=== PATIENT | female | born 1985 | race Asian ===

== ENCOUNTER 2018-10-10 21:35 | Outpatient (CLI) | payer OTHER | END 2018-10-10 21:36 | disposition critical access hospital (66) | LOC: EMS 21:35 | PROVIDERS: ATTEND Surgery | DX: R09.89 Other specified symptoms and signs involving the circulatory and respiratory systems (principal); R21 Rash and other nonspecific skin eruption | CPT/HCPCS: A0425; A0427 ==

== ENCOUNTER 2018-10-10 21:49 | Emergency (ER) | payer OTHER ==
[2018-10-10] MEDS ORDERED: DEXAMETHASONE 10 MG/ML VIAL IVP STA (21:59)
[2018-10-11 00:35] VITALS: BP 102/79
--- NOTE | 2018-10-11 01:35 | ED Physician Documentation ---
History of Present Illness - Stated complaint Stated Complaint: ALLERGIC REACTION - Chief complaint Chief Complaint: Allergic Rx - History obtained from History obtained from: Patient, EMS - History of Present Illness Timing: Today - Additonal information Additional information: 32-year-old female took some edibles and then began to feel some swelling in her throat and redness to her arm and she has become concerned and is come to the emergency department for treatment. 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 - Allergies Allergies/Adverse Reactions: Allergies Allergy/AdvReac Type Severity Reaction Status Date / Time ketorolac [From Toradol] AdvReac Emesis Verified 10/10/18 21:58 - Social History Does the pt smoke?: No Smoking Status: Never smoker Does the pt drink ETOH?: Yes Does the pt have substance abuse?: Yes Substance Use and Type: Marijuana - Immunizations Immunizations are current?: Yes - POLST Patient has POLST: No PD ED PE NORMAL - Vitals Vital signs reviewed: Yes (hypertension ) - General General: Alert and oriented X 3, No acute distress, Well developed/nourished - HEENT HEENT: Atraumatic, PERRL, EOMI, Ears normal, Moist mucous membranes, Pharynx benign, Dentition benign - Neck Neck: Supple, no meningeal sign, No bony TTP - Cardiac Cardiac: RRR, No murmur - Respiratory Respiratory: No respiratory distress, Clear bilaterally - Abdomen Abdomen: Soft, Non tender - Back Back: No CVA TTP, No spinal TTP - Derm Derm: Normal color, Warm and dry, No rash - Extremities Extremities: No deformity, No edema - Neuro Neuro: Alert and oriented X 3, 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 Departure - Departure Disposition: 01 Home, Self Care Clinical Impression: Allergic reaction Qualifiers: Encounter type: initial encounter Qualified Code(s): T78.40XA - Allergy, unspecified, initial encounter Instructions: ED Allergic Reaction General Other Follow-Up: ALESSANDRO Elias [Provider Group] Discharge Date/Time: 10/11/18 01:39
== END 2018-10-11 01:39 | disposition home or self-care (01) ==
LOC: EDSEX → ED 21:49
DX: T40.7X1A Poisoning by cannabis (derivatives), accidental (unintentional), initial encounter (principal); R22.1 Localized swelling, mass and lump, neck
CPT/HCPCS: 96374; 99282; 99283

== ENCOUNTER 2019-03-17 01:27 | Emergency (ER) | payer OTHER ==
[2019-03-17 01:43] VITALS: BP 113/83
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
== END 2019-03-17 02:40 | disposition home or self-care (01) ==
LOC: ED 01:27
DX: T23.132A Burn of first degree of multiple left fingers (nail), not including thumb, initial encounter (principal); X14.1XXA Other contact with hot air and other hot gases, initial encounter; Y93.G3 Activity, cooking and baking; Y92.009 Unspecified place in unspecified non-institutional (private) residence as the place of occurrence of the external cause
CPT/HCPCS: 99281; 99282

== ENCOUNTER 2019-03-29 19:27 | Outpatient (CLI) | payer OTHER | END 2019-03-29 19:28 | disposition critical access hospital (66) | LOC: EMS 19:27 | PROVIDERS: ATTEND Surgery | DX: R51 Headache (principal) | CPT/HCPCS: A0425; A0429 ==

== ENCOUNTER 2019-03-29 19:46 | Emergency (ER) | payer OTHER ==
[2019-03-29] MEDS ORDERED: SODIUM CHLORIDE 0.9% 1,000 ML IV ONE (20:41)
[2019-03-29] MEDS ORDERED: diphenhydrAMINE INJ 50 MG/ML VIAL IVP STA (20:41)
[2019-03-29] MEDS ORDERED: MAGNESIUM SULFATE 2 GRAM 2 GM/50 ML BAG IV ONE (20:41)
[2019-03-29] MEDS ORDERED: METOCLOPRAMIDE 10 MG/2 ML VIAL IVP STA (20:41)
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
[2019-03-29 20:55] LABS: BASOPHILS # (AUTO) 0.1 10^3/uL (0.0-0.1); BASOPHILS % (AUTO) 0.5 %; EOSINOPHILS # (AUTO) 0.3 10^3/uL (0.0-0.7); EOSINOPHILS % (AUTO) 2.5 %; HGB - HEMOGLOBIN 14.2 g/dL (12.0-16.0); LYMPHOCYTES # (AUTO) 2.5 10^3/uL (1.5-3.5); LYMPHOCYTES % (AUTO) 21.7 %; MEAN CORPUSCULAR HEMOGLOBIN 31.4 pg (27.0-31.0); MEAN CORPUSCULAR HGB CONC 32.8 g/dL (32.0-36.0); MEAN CORPUSCULAR VOLUME 95.8 fL (81.0-99.0); MEAN PLATELET VOLUME 10.2 fL (7.9-10.8); MONOCYTES # (AUTO) 0.7 10^3/uL (0.0-1.0); MONOCYTES % (AUTO) 6.1 %; NEUTROPHILS # (AUTO) 7.8 10^3/uL (1.5-6.6); NEUTROPHILS % (AUTO) 68.8 %; PLT - PLATELET COUNT 268 10^3/uL (130-450); RED BLOOD COUNT 4.52 10^6/uL (4.20-5.40); RED CELL DISTRIBUTION WIDTH 14.1 % (12.0-15.0); WHITE BLOOD COUNT 11.4 x10^3/uL (4.8-10.8)
[2019-03-29 21:28] LABS: CALCIUM 8.7 mg/dL (8.5-10.3); CREATININE 0.7 mg/dL (0.4-1.0)
[2019-03-29 21:46] LABS: HCG,QUALITATIVE BLOOD NEGATIVE
--- NOTE | 2019-03-29 22:25 | CT Report ---
Reason: headache, fall 4 days ago Procedure Date: 03/29/2019 Accession Number: [id number] / [id number] Procedure: CT - HEAD WO CPT Code: Final Report FULL RESULT: EXAM: CT HEAD EXAM DATE: 03/29/2019 10:02 PM. CLINICAL HISTORY: Headache, fall 4 days ago. COMPARISON: None. TECHNIQUE: Multiaxial CT images were obtained from the foramen magnum to the vertex. Reformats: Sagittal and coronal. IV contrast: None. In accordance with CT protocol optimization, one or more of the following dose reduction techniques were utilized for this exam: automated exposure control, adjustment of mA and/or KV based on patient size, or use of iterative reconstructive technique. FINDINGS: Parenchyma: No intraparenchymal hemorrhage. No evidence of mass, midline shift, or CT findings of infarction. Castillo-white differentiation is distinct. Extraaxial Spaces: Normal for age. No subdural or epidural collections identified. Ventricles: Normal in size and position. Sinuses and Orbits: Imaged paranasal sinuses, orbits, and mastoids show no significant abnormality. Bones: No evidence of fracture or calvarial defect. Other: None. IMPRESSION: Normal head CT. RAD[facility]
[2019-03-29 22:53] VITALS: BP 110/84
== END 2019-03-29 22:53 | disposition home or self-care (01) ==
LOC: EDUNIT# → ED 19:46
DX: R51 Headache (principal)
CPT/HCPCS: 36415; 70450; 80048; 84703; 85025; 96365; 96375; 99284; J1200; J2765

== ENCOUNTER 2019-04-19 01:23 | Emergency (ER) | payer OTHER ==
[2019-04-19] MEDS ORDERED: CHERRY SYRUP 10 ML UDC PO ONE (02:48)
[2019-04-19] MEDS ORDERED: DEXAMETHASONE 10 MG/ML VIAL PO STA (02:48)
--- NOTE | 2019-04-19 02:50 | ED Physician Documentation ---
PD HPI DYSPNEA - Stated complaint Stated Complaint: SOA,CHEST PX - Chief complaint Chief Complaint: Resp - History obtained from History obtained from: Patient, Family - History of Present Illness Timing - onset: How many days ago (3) Timing - onset during: Rest Timing - duration: Days (3) Timing - details: Gradual onset, Still present Inciting event(s): Other (exposure to vaping) Worsened by: Coughing, Smoke Associated symptoms: Cough, Chest pain / discomfort. No: Fever Similar symptoms before: Has not had sx before Recently seen: Not recently seen - Additional information Additional information: Previously well 33-year-old female has been vaping THC obtained from a dispensary and not containing vitamin E oils. She has developed a cough associated with the vaping and some pain in her central chest. She has been having an issue with the cough for about 2 weeks and for the past 3 days she has had significant chest pain and shortness of breath. Review of Systems Constitutional: denies: Fever Eyes: denies: Decreased vision Ears: denies: Ear pain Nose: denies: Rhinorrhea / runny nose, Congestion Throat: denies: Sore throat Cardiac: reports: Chest pain / pressure. 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 - Present Medications Home Medications: Ambulatory Orders Medication Instructions Recorded Confirmed Metoclopramide [Reglan] 10 mg PO Q6H PRN #10 tablet 03/29/19 - Allergies Allergies/Adverse Reactions: Allergies Allergy/AdvReac Type Severity Reaction Status Date / Time ketorolac [From Toradol] AdvReac Emesis Verified 03/29/19 19:52 - Social History Does the pt smoke?: Yes Smoking Status: Current every day smoker Does the pt drink ETOH?: Yes Does the pt have substance abuse?: Yes - Immunizations Immunizations are current?: Yes - POLST Patient has POLST: No PD ED PE NORMAL - Vitals Vital signs reviewed: Yes (hpyertensive mild ) - General General: Alert and oriented X 3, No acute distress, Well developed/nourished - HEENT HEENT: Atraumatic, PERRL, EOMI, Ears normal, Moist mucous membranes - Neck Neck: Supple, no meningeal sign, No bony TTP - Cardiac Cardiac: RRR, No murmur - Respiratory Respiratory: No respiratory distress, Clear bilaterally - Abdomen Abdomen: Soft, Non tender, Non distended, No organomegaly - Back Back: No CVA TTP, No spinal TTP - Derm Derm: Normal color, Warm and dry, No rash - Extremities Extremities: No deformity, No edema - Neuro Neuro: Alert and oriented X 3, 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 No acute abnormality seen in the chest), EMP read indepedently, See rad report PD MEDICAL DECISION MAKING - ED course Complexity details: reviewed results, re-evaluated patient, considered differential, d/w patient, d/w family ED course: 33-year-old female with cough and chest pain related to vaping has no wheezing on initial evaluation. She is administered dexamethasone 10 mg orally and she is encouraged to discontinue the use of the vape pen. Her chest x-ray is otherwise unremarkable. There is no evidence of infection. Departure - Departure Disposition: Home, Self Care Clinical Impression: Bronchitis due to fumes or vapors, acute Condition: Stable Instructions: ED Bronchitis Asthmatic Follow-Up: ALESSANDRO Elias [Provider Group] Comments: Today it appears you have pain in your chest related to vaping. You have been given a dose of dexamethasone which should help with the acute inflammation associated with this. The recommendation is to discontinue vaping entirely. Today on chest x-ray there is no evidence of obvious lung abnormality.
--- NOTE | 2019-04-19 03:58 | XRAY Report ---
Reason: cough pain soa Procedure Date: 04/19/2019 Accession Number: [id number] / [id number] Procedure: XR - Chest 2 View X-Ray CPT Code: 32317 Final Report FULL RESULT: EXAM: CHEST RADIOGRAPHY EXAM DATE: 04/19/2019 03:18 AM. CLINICAL HISTORY: Cough pain shortness of breath. COMPARISON: None. TECHNIQUE: 2 views. FINDINGS: Lungs/Pleura: No alveolar consolidation or pleural effusion seen. No pneumothorax. Mediastinum: Heart and mediastinal contours are unremarkable. Other: None. IMPRESSION: 1. No acute abnormality seen in the chest. [facility]
[2019-04-19 04:15] VITALS: BP 117/83
== END 2019-04-19 04:19 | disposition home or self-care (01) ==
LOC: ED 01:23
DX: T65.891A Toxic effect of other specified substances, accidental (unintentional), initial encounter (principal); J68.0 Bronchitis and pneumonitis due to chemicals, gases, fumes and vapors; F12.188 Cannabis abuse with other cannabis-induced disorder; F17.200 Nicotine dependence, unspecified, uncomplicated
CPT/HCPCS: 71046; 99283; 99284; A9270

== ENCOUNTER 2019-04-20 00:43 | Outpatient (CLI) | payer OTHER | END 2019-04-20 00:44 | disposition critical access hospital (66) | LOC: EMS 00:43 | PROVIDERS: ATTEND Surgery | DX: R07.81 Pleurodynia (principal) | CPT/HCPCS: A0425; A0429 ==

== ENCOUNTER 2019-04-20 01:00 | Emergency (ER) | payer OTHER ==
[2019-04-20] MEDS ORDERED: ONDANSETRON 4 MG/2 ML VIAL IVP STA (01:27)
[2019-04-20] MEDS ORDERED: IBUPROFEN 600 MG TABLET PO STA (01:27)
--- NOTE | 2019-04-20 01:28 | ED Physician Documentation ---
PD HPI CHEST PAIN - Stated complaint Stated Complaint: RIB PAIN - Chief complaint Chief Complaint: General - History obtained from History obtained from: Patient, Family - History of Present Illness Timing - onset: Today Timing - details: Gradual onset Pain level max: 7 Pain level now: 4 Quality: Pain Location: Left chest Worsened by: Movement, Other (Breathing) Associated symptoms: Shortness of air. No: Nausea, Vomiting Recently seen: Emergency Dept - Additional information Additional information: There is a 33-year-old woman who presents with her by ambulance with complaints that she is been having left-sided chest pain for the past 3 days. She was seen here in the emergency department for it yesterday a chest x-ray was done and they felt the pain was due to vaping so she was given a dexamethasone injection and instructed not to be vaping anymore. She says she did not smoke or vape today but the pain started to come back again tonight is a 4 out of 10 now but if she takes a deep breath or moves it is a 7 out of 10. She has not taken any medications for it at home. She was coughing bringing up a little bit a yellow phlegm prior to the onset of this pain but has not had a sore throat or stuffy nose. She denies any palpitations. She is felt a little fatigued and gets short of breath if she gets up and moves around. Her last menstrual period was at the end of March but she does not think that she is . She is not using any hormonal control. Denies fever. No edema and denies history of DVT. She is and denies any trauma other than the fact that her 80 pound malamute jumped up on her while she was sitting today. She did take a 5 mg cannabis tincture tonight trying to help alleviate the pain. Review of Systems Constitutional: reports: Fatigue. denies: Fever Nose: denies: Rhinorrhea / runny nose Throat: denies: Sore throat Cardiac: reports: Chest pain / pressure. denies: Palpitations, Pedal edema Respiratory: reports: Dyspnea. denies: Cough GI: denies: Nausea, Vomiting : denies: Dysuria, Now EGA Skin: denies: Rash Musculoskeletal: denies: Back pain, Extremity pain Neurologic: reports: Generalized weakness. 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 - Present Medications Home Medications: Ambulatory Orders Medication Instructions Recorded Confirmed Metoclopramide [Reglan] 10 mg PO Q6H PRN #10 tablet 03/29/19 Polyethylene Glycol 3350 [Miralax] 17 gm PO DAILY #10 packet 04/20/19 - Allergies Allergies/Adverse Reactions: Allergies Allergy/AdvReac Type Severity Reaction Status Date / Time ketorolac [From Toradol] AdvReac Emesis Verified 03/29/19 19:52 - Social History Does the pt smoke?: Yes Smoking Status: Current every day smoker Does the pt drink ETOH?: Yes Does the pt have substance abuse?: Yes - Immunizations Immunizations are current?: Yes - POLST Patient has POLST: No PD ED PE NORMAL - Vitals Vital signs reviewed: Yes - General General: Alert and oriented X 3, Well developed/nourished, Other (Thin 33-year-old woman who sitting rubbing moves very slowly when she goes to sit up and grimacing.) - HEENT HEENT: Atraumatic, PERRL, Moist mucous membranes - Neck Neck: Other (Patient does have anterior and posterior cervical adenopathy) - Cardiac Cardiac: RRR, No murmur, Strong equal pulses - Respiratory Respiratory: No respiratory distress, Clear bilaterally, Other (Splinting with respirations. She complains of pain with palpation along the left lateral chest wall. No subcu emphysema, crepitus or crepitance. 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 No: Wide QRS Ischemia: Normal ST segments Compare to prior EKG: Old EKG unavailable - Labs Labs: Laboratory Tests 04/20/19 04/20/19 04/20/19 01:35 01:35 01:35 WBC 10.8 RBC 3.99 L Hgb 12.7 Hct 37.9 MCV 95.0 MCH 31.8 H MCHC 33.5 RDW 13.2 Plt Count 237 MPV 10.6 Neut # (Auto) 6.8 H Lymph # (Auto) 3.0 [place] # (Auto) 0.8 Eos # (Auto) 0.0 Baso # (Auto) 0.1 Absolute Nucleated RBC 0.00 Nucleated RBC % 0.0 D-Dimer 762.5 H Sodium 135 Potassium 3.2 L Chloride 102 Carbon Dioxide 25 Anion Gap 8.0 BUN 12 Creatinine 1.0 Estimated GFR (MDRD) 65 L Glucose 109 H Calcium 9.3 Total Bilirubin 0.7 AST 17 ALT 13 Alkaline Phosphatase 43 Total Protein 7.5 Albumin 4.6 Globulin 2.9 Albumin/Globulin Ratio 1.6 Lipase 58 H Urine Color Urine Clarity Urine pH Ur Specific Round O Urine Protein Urine Glucose (UA) Urine Ketones Urine Occult Blood Urine Nitrite Urine Bilirubin Urine Urobilinogen Ur Leukocyte Esterase Ur Microscopic Review Urine Culture Comments Urine HCG, Qual 04/20/19 02:30 WBC RBC Hgb Hct MCV MCH MCHC RDW Plt Count MPV Neut # (Auto) Lymph # (Auto) [place] # (Auto) Eos # (Auto) Baso # (Auto) Absolute Nucleated RBC Nucleated RBC % D-Dimer Sodium Potassium Chloride Carbon Dioxide Anion Gap BUN Creatinine Estimated GFR (MDRD) Glucose Calcium Total Bilirubin AST ALT Alkaline Phosphatase Total Protein Albumin Globulin Albumin/Globulin Ratio Lipase Urine Color YELLOW Urine Clarity CLEAR Urine pH 6.0 Ur Specific Round O 1.020 Urine Protein NEGATIVE Urine Glucose (UA) NEGATIVE Urine Ketones TRACE Urine Occult Blood NEGATIVE Urine Nitrite NEGATIVE Urine Bilirubin NEGATIVE Urine Urobilinogen 0.2 (NORMAL) Ur Leukocyte Esterase NEGATIVE Ur Microscopic Review NOT INDICATED Urine Culture Comments NOT INDICATED Urine HCG, Qual NEGATIVE - Rads (name of study) ct angio chest Radiology: See rad report (Neg PE) PD MEDICAL DECISION MAKING - ED course Complexity details: reviewed old records, re-evaluated patient, d/w patient, d/w family ED course: I did review the chest x-ray done last night. No infiltrate no pneumothorax. No obvious rib fractures. She is noted to have a lot of bowel gas. She was ordered for IV Zofran but before that could be given she was demanding that the IV be taken out that the EMS had established because it was hurting. It was removed and she was administered oral Zofran and ibuprofen. CBC is normal. Her d-dimer dimer came back over 700. I discussed with her we needed to do a CT angio of her chest and an IV was reestablished. She is not and her urinalysis was negative. She was complaining of more nausea and I ordered Compazine 10 mg IV. She said the ibuprofen and Zofran had helped the pain somewhat it was down to about a 2 out of 10. 0347: Patient returned from CT and received the Compazine. On reevaluation she is sleeping. The CT was negative for PE but on the gate shear operator imaging I noticed that she has a lot of gaseous distention of her colon and the gastric air bubble sitting right underneath the left diaphragm. Results were discussed with her and her . I recommended MiraLAX to try and clear out her gut and see if that help alleviate the discomfort. Ibuprofen for pain. I would avoid narcotic s at this point especially with what I am seeing on her imaging with the gut distension. Departure - Departure Disposition: 01 Home, Self Care Clinical Impression: Pleuritic chest pain, Constipation Condition: Good Instructions: ED Chest Pain Pleurisy Follow-Up: [facility] [Provider Group] Prescriptions: Polyethylene Glycol 3350 [Miralax] 17 gm PO DAILY #10 packet Comments: May take ibuprofen or Aleve for the pain. I would avoid any narcotics as this could create worsening gas retention in the gut. Take 1-3 doses of MiraLAX over the next 3 days to help clear your gut. [facility].
[2019-04-20 01:41] LABS: BASOPHILS # (AUTO) 0.1 10^3/uL (0.0-0.1); BASOPHILS % (AUTO) 0.5 %; EOSINOPHILS % (AUTO) 0.3 %; HGB - HEMOGLOBIN 12.7 g/dL (12.0-16.0); LYMPHOCYTES % (AUTO) 28.2 %; MEAN CORPUSCULAR HEMOGLOBIN 31.8 pg (27.0-31.0); MEAN CORPUSCULAR HGB CONC 33.5 g/dL (32.0-36.0); MEAN PLATELET VOLUME 10.6 fL (7.9-10.8); MONOCYTES # (AUTO) 0.8 10^3/uL (0.0-1.0); MONOCYTES % (AUTO) 7.2 %; NEUTROPHILS # (AUTO) 6.8 10^3/uL (1.5-6.6); NEUTROPHILS % (AUTO) 63.4 %; PLT - PLATELET COUNT 237 10^3/uL (130-450); RED BLOOD COUNT 3.99 10^6/uL (4.20-5.40); RED CELL DISTRIBUTION WIDTH 13.2 % (12.0-15.0); WHITE BLOOD COUNT 10.8 x10^3/uL (4.8-10.8)
[2019-04-20] MEDS ORDERED: ONDANSETRON ODT 4 MG TABLET TL STA (01:46)
[2019-04-20 01:54] LABS: ALBUMIN 4.6 g/dL (3.2-5.5); ALBUMIN/GLOBULIN RATIO 1.6 (1.0-2.2); BILIRUBIN,TOTAL 0.7 mg/dL (0.2-1.0); CALCIUM 9.3 mg/dL (8.5-10.3); TOTAL PROTEIN 7.5 g/dL (6.7-8.2)
[2019-04-20 02:35] LABS: BILIRUBIN,URINE NEGATIVE (NEGATIVE); GLUCOSE, URINE (UA) NEGATIVE (NEGATIVE); KETONES,URINE (UA) TRACE mg/dL (NEGATIVE); LEUKOCYTE ESTERASE, URINE NEGATIVE (NEGATIVE); NITRITE,URINE NEGATIVE (NEGATIVE); OCCULT BLOOD,URINE NEGATIVE (NEGATIVE); PROTEIN,URINE NEGATIVE (NEGATIVE); UROBILINOGEN,URINE 0.2 (NORMAL) E.U./dL (NORMAL)
[2019-04-20 02:37] LABS: CLARITY,URINE CLEAR (CLEAR); HCG UR QUAL NEGATIVE
[2019-04-20] MEDS ORDERED: IOVERSOL 320 100 ML VIAL IVP ONE ×2 (02:49→03:09)
[2019-04-20] MEDS ORDERED: PROCHLORPERAZINE 10 MG/2 ML VIAL IVP STA (02:57)
--- NOTE | 2019-04-20 03:37 | CT Report ---
Reason: pleuritic chest pain Procedure Date: 04/20/2019 Accession Number: [id number] / [id number] Procedure: CT - ANGIO CHEST W/WO CPT Code: Final Report FULL RESULT: EXAM: CT ANGIOGRAM CHEST EXAM DATE: 04/20/2019 03:11 AM. CLINICAL HISTORY: Pleuritic chest pain. COMPARISON: None. TECHNIQUE: Routine helical imaging was performed through the chest in the pulmonary arterial phase. IV Contrast: OPTI 320 80ML. Reconstructions: Coronal 3-D MIP reconstructions.Sagittal and coronal. In accordance with CT protocol optimization, one or more of the following dose reduction techniques were utilized for this exam: automated exposure control, adjustment of mA and/or KV based on patient size, or use of iterative reconstructive technique. FINDINGS: Pulmonary Arteries: Diagnostic quality: Adequate through the segmental arteries. No evidence for acute or chronic pulmonary emboli. No evidence of right heart strain. Lungs/Pleura: No alveolar consolidation or pleural effusion seen. No pneumothorax. Mediastinum: Normal. No cardiac enlargement or adenopathy. Thoracic Aorta: Unremarkable. Upper Abdomen: Unremarkable. Other: None. IMPRESSION: 1. No pulmonary emboli seen. No acute abnormality seen in the chest. RADIA
[2019-04-20 03:40] VITALS: BP 116/75
== END 2019-04-20 03:57 | disposition home or self-care (01) ==
LOC: EDUNIT# → ED 01:00
DX: R07.81 Pleurodynia (principal); K59.00 Constipation, unspecified; F17.200 Nicotine dependence, unspecified, uncomplicated
CPT/HCPCS: 36415; 71275; 80053; 81003; 81025; 83690; 85025; 85379; 93005; 96374; 99284; A9270; Q0162; Q9967; 81001; 87086

== ENCOUNTER 2019-04-23 08:31 | Emergency (ER) | payer OTHER ==
--- NOTE | 2019-04-23 08:59 | ED Physician Documentation ---
History of Present Illness - Stated complaint Stated Complaint: CP - Additonal information Additional information: This is a 33-year-old female who presents with left-sided chest pain. Patient was initially seen on the first and she had generalized chest discomfort, this was thought to be related to vaping, she was given dexamethasone and stopped vaping But her chest pain persisted And localized to her left lower chest so she presented again On 04/20/2019 and had a work-up including a negative EKG. She did have an elevated d-dimer at that time so a CTA was performed which showed no acute abnormalities with the lungs, no pulmonary embolism, no signs of rib fracture. It is thought that maybe she had a musculoskeletal chest pain since her heavy malamute dog did jump on her chest prior to her pain starting. She states that she has had persistent pain which is not improved with THC/CBD oil, so she presents again today. No hemoptysis, no shortness of breath, the pain is unchanged from several days ago when she had her CT and previous work-up. She denies any history of cardiac problems. 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 - Present Medications Home Medications: Ambulatory Orders Medication Instructions Recorded Confirmed Metoclopramide [Reglan] 10 mg PO Q6H PRN #10 tablet 03/29/19 polyethylene glycoL 3350 [Miralax] 17 gm PO DAILY #10 packet 04/20/19 Ibuprofen [Ibu] 600 mg PO Q6H PRN #30 tablet 04/23/19 methocarbamoL [Methocarbamol] 500 mg PO TID PRN #15 tablet 04/23/19 - Allergies Allergies/Adverse Reactions: Allergies Allergy/AdvReac Type Severity Reaction Status Date / Time ketorolac [From Toradol] AdvReac Emesis Verified 04/23/19 08:42 - Social History Does the pt smoke?: Yes Smoking Status: Current every day smoker Does the pt drink ETOH?: Yes Does the pt have substance abuse?: Yes - Immunizations Immunizations are current?: Yes - POLST Patient has POLST: No PD ED PE NORMAL - Vitals Vital signs reviewed: Yes - General General: Alert and oriented X 3 - HEENT HEENT: Atraumatic - Cardiac Cardiac: RRR - Respiratory Respiratory: No respiratory distress, Clear bilaterally, Other (Patient has focal and reproducible chest wall tenderness over her left lower anterior ribs. There is no overlying rash, no bruising or signs of trauma) Results - Vitals Vitals: Vital Signs - 24 hr 04/23/19 04/23/19 08:38 10:32 Temperature 36.3 C L Heart Rate 87 63 Respiratory 16 16 Rate Blood Pressure 130/81 H 121/95 H O2 Saturation 100 98 Oxygen O2 Source Room air - EKG (time done) 8:35 Other comments: Other comments (Rate 85, rhythm sinus, there is no ST segment elevation or depression, no abnormal T wave inversions. Normal R wave pro gression. Intervals within normal limits. No change from prior.) - Rads (name of study) CXR Radiology: Other (Normal 2 view chest) PD MEDICAL DECISION MAKING - ED course Complexity details: considered differential (PE, rib fracture, pneumothorax, ACS, musculoskeletal pain) ED course: Patient returns with chest discomfort. She was seen and had a extensive work-up several days ago including a CT scan of her chest which showed no fractures, pneumonia, or pulmonary embolism. The pain did start after her dog jumped on her chest. Her work-up was unremarkable and she is low risk for cardiac disease. EKG was repeated today shows normal sinus rhythm without any signs of ischemia or dysrhythmia. I did repeat an x-ray as well today which showed no acute abnormalities. The location of her pain and it's reproducibility and the fact that is worse with movement does suggest chest wall discomfort. She has not been taking anything other than THC/CBD oil for discomfort, I discussed that ibuprofen and Tylenol would likely give her better relief. She asked for a note excusing her from a flight to [employer] and training, I discussed that do not see a medical reason to keep her from flying at this time, but I think is reasonable that she avoid strenous activity until her pain is improving. Patient agrees this plan, return precautions reviewed and she was discharged home in care of her Departure - Departure Disposition: 01 Home, Self Care Clinical Impression: Chest pain Qualifiers: Chest pain type: unspecified Qualified Code(s): R07.9 - Chest pain, unspecified Condition: Good Prescriptions: Ibuprofen [Ibu] 600 mg PO Q6H PRN #30 tablet PRN Reason: Pain methocarbamoL [Methocarbamol] 500 mg PO TID PRN #15 tablet PRN Reason: Pain Comments: You were seen today for chest pain. Your EKG and chest x-ray are reassuring. Your CT scan several days ago did not show any signs of rib fracture or blood clots or pneumonia. I think you likely have some irritation/strain of your chest wall, and I recommend that you take ibuprofen 600 mg every 6 hours, and you may also try the methocarbamol for discomfort. If you are having worsening symptoms such as coughing up blood, shortness of breath, or other concerning symptoms return to the emergency department. Please follow-up with your primary care provider. Forms: Activity restrictions Discharge Date/Time: 04/23/19 10:34
[2019-04-23] MEDS ORDERED: methocarbamoL 500 MG TABLET PO STA (09:00)
[2019-04-23] MEDS ORDERED: IBUPROFEN 600 MG TABLET PO STA (09:00)
[2019-04-23] MEDS ORDERED: ACETAMINOPHEN 325 MG TABLET PO STA (09:00)
--- NOTE | 2019-04-23 10:14 | XRAY Report ---
Reason: Persistent L chest pain Procedure Date: 04/23/2019 Accession Number: [id number] / [id number] Procedure: XR - Chest 2 View X-Ray CPT Code: 31269 Final Report FULL RESULT: EXAM: CHEST RADIOGRAPHY EXAM DATE: 04/23/2019 09:38 AM. CLINICAL HISTORY: Persistent L chest pain. COMPARISON: CHEST 2 VIEW 04/19/2019 3:09 AM. TECHNIQUE: 2 views. FINDINGS: Lungs/Pleura: No focal opacities evident. No pleural effusion. No pneumothorax. Normal volumes. Mediastinum: Heart and mediastinal contours are unremarkable. Other: None. IMPRESSION: Normal 2-view chest radiography. RADIA
[2019-04-23 10:34] VITALS: BP 121/95
== END 2019-04-23 10:34 | disposition home or self-care (01) ==
LOC: ED 08:31
DX: R07.9 Chest pain, unspecified (principal); Z02.9 Encounter for administrative examinations, unspecified; F17.200 Nicotine dependence, unspecified, uncomplicated
CPT/HCPCS: 71046; 93005; 99283; A9270

== ENCOUNTER 2019-04-27 01:51 | Outpatient (CLI) | payer OTHER | END 2019-04-27 01:52 | disposition EMS.NT | LOC: EMS 01:51 | PROVIDERS: ATTEND Surgery | DX: R07.9 Chest pain, unspecified (principal) ==

== ENCOUNTER 2019-05-11 22:17 | Emergency (ER) | payer OTHER ==
[2019-05-11 22:40] VITALS: BP 123/95
== END 2019-05-11 23:58 | disposition left against medical advice (07) ==
LOC: ED 22:17
DX: Z53.21 Procedure and treatment not carried out due to patient leaving prior to being seen by health care provider (principal)

== ENCOUNTER 2019-07-15 09:12 | Outpatient (CLI) | payer OTHER | END 2019-07-15 09:13 | disposition critical access hospital (66) | LOC: EMS 09:12 | PROVIDERS: ATTEND Surgery | DX: R05 Cough (principal); R07.89 Other chest pain | CPT/HCPCS: A0425; A0429 ==

== ENCOUNTER 2019-07-15 09:36 | Emergency (ER) | payer OTHER ==
--- NOTE | 2019-07-15 10:04 | ED Physician Documentation ---
PD HPI URI - Stated complaint Stated Complaint: COUGH/CHEST TIGHT - Chief complaint Chief Complaint: Resp - History obtained from History obtained from: Patient - History of Present Illness Timing - onset: How many days ago (5-6) Timing duration: Days (5-6) Timing details: Gradual onset, Still present Associated symptoms: Chills, Nasal congestion, Dry cough, Dyspnea. No: Fever, NVD Contributing factors: Sick contact (She had a possible Coban exposure 20 days ago and had been self isolating away from people for 2 weeks. She was back out little bit more exposed but noticed onset of a cough some fatigue and shortness of breath developing over the last 5 or 6 days. She was seen at [facility] ER for f eeling of light headedness and nausea and vomiting with some diarrhea. She did not have much of the cough at that time. She was prescribed some Zofran and states her nausea has improved. She is continued with diarrhea and having increased general weakness. She was seen at the [facility] yesterday and had a Coban test with the results pending. Today she was feeling lightheaded and had some coughing when she was in the car and felt that she passed out momentarily. She is here for evaluation.) Worsened by: Activity Similar symptoms before: Has not had sx before Recently seen: Clinic ([facility] yesterday with COVID testing), Emergency Dept (Several days ago for nausea vomiting diarrhea component at that time. Seen in [facility] and prescribed Zofran.) Review of Systems Constitutional: reports: Chills, Myalgias. denies: Fever Nose: reports: Rhinorrhea / runny nose, Congestion Throat: denies: Sore throat Cardiac: denies: Chest pain / pressure, Palpitations, Pedal edema Respiratory: reports: Dyspnea, Cough GI: reports: Nausea, Vomiting, Diarrhea. denies: Abdominal Pain, Hematemesis, Bloody / black stool : reports: LMP (recent). 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 - Present Medications Home Medications: Ambulatory Orders Medication Instructions Recorded Confirmed Benzonatate [Tessalon Perle] 100 mg PO TID PRN #20 capsule 07/15/19 Diphenoxylate/Atropine [Lomotil] 1 each PO QID PRN #16 tablet 07/15/19 - Allergies Allergies/Adverse Reactions: Allergies Allergy/AdvReac Type Severity Reaction Status Date / Time ketorolac [From Toradol] AdvReac Emesis Verified 07/15/19 09:43 - Social History Does the pt smoke?: Yes Smoking Status: Current every day smoker Does the pt drink ETOH?: Yes ETOH Use: Beer Does the pt have substance abuse?: No - Immunizations Immunizations are current?: Yes - POLST Patient has POLST: No PD ED PE NORMAL - Vitals Vital signs reviewed: Yes - General General: Alert and oriented X 3, No acute distress, Well developed/nourished - HEENT HEENT: Ears normal, Pharynx benign. No: Moist mucous membranes - Neck Neck: Supple, no meningeal sign, No adenopathy - Cardiac Cardiac: RRR, No murmur - Respiratory Respiratory: Clear bilaterally - Abdomen Abdomen: Normal bowel sounds, Soft, Non tender, Non distended - Derm Derm: Normal color, Warm and dry - Extremities Extremities: No deformity, No tenderness to palpate, No edema, No calf tenderness / cord - Neuro Neuro: Alert and oriented X 3, No motor deficit, No sensory deficit, Normal speech Results - Vitals Vitals: Oxygen O2 Source Room air - EKG (time done) 10:15 Rate: Rate (enter#) (58) Rhythm: NSR [place]: Normal Intervals: Normal NV. No: Prolonged QT QRS: Normal Ischemia: Normal ST segments. No: ST elevation c/w ischemia, ST depression - Labs Labs: Laboratory Tests 07/15/19 07/15/19 07/15/19 10:30 10:30 10:30 WBC 6.3 RBC 4.05 L Hgb 12.9 Hct 38.6 MCV 95.3 MCH 31.9 H MCHC 33.4 RDW 13.3 Plt Count 214 MPV 10.7 Neut # (Auto) 4.3 Lymph # (Auto) 1.6 Pierce # (Auto) 0.4 Eos # (Auto) 0.0 Baso # (Auto) 0.0 Absolute Nucleated RBC 0.00 Nucleated RBC % 0.0 Sodium 135 Potassium 3.5 Chloride 104 Carbon Dioxide 22 Anion Gap 9.0 BUN 7 Creatinine 0.6 Estimated GFR (MDRD) 117 Glucose 97 Calcium 8.8 Magnesium Total Bilirubin 0.7 AST 15 ALT 11 Alkaline Phosphatase 29 L Troponin I High Sens < 2.3 L B-Natriuretic Peptide Total Protein 7.2 Albumin 4.5 Globulin 2.7 Albumin/Globulin Ratio 1.7 Lipase 34 Serum HCG, Qual 07/15/19 07/15/19 07/15/19 10:30 10:30 10:30 WBC RBC Hgb Hct MCV MCH MCHC RDW Plt Count MPV Neut # (Auto) Lymph # (Auto) Pierce # (Auto) Eos # (Auto) Baso # (Auto) Absolute Nucleated RBC Nucleated RBC % Sodium Potassium Chloride Carbon Dioxide Anion Gap BUN Creatinine Estimated GFR (MDRD) Glucose Calcium Magnesium 2.0 Total Bilirubin AST ALT Alkaline Phosphatase Troponin I High Sens B-Natriuretic Peptide 7 Total Protein Albumin Globulin Albumin/Globulin Ratio Lipase Serum HCG, Qual NEGATIVE - Rads (name of study) chest xray Radiology: Prelim report reviewed (no acute process), See rad report PD MEDICAL DECISION MAKING - ED course Complexity details: considered differential (I think her fainting episode was related to the coughing hard and probably under hydrated given recent nausea and diarrhea. She had been prescribed Zofran for her nausea and vomiting a couple of days ago but her EKG shows a normal rhythm without any QT widening. Her heart monitor shows normal rhythm here. Chest x-ray is clear and oxygenation is good. She is given some IV fluids as well as Lomotil for diarrhea. She does not appear to have a significant pneumonia process based on x-ray oxygenation and lung sounds. However she is having the cough with shortness of breath so consideration for coronavirus. No signs of bacterial infection based on the history and exam.), d/w patient Departure - Departure Disposition: 01 Home, Self Care Clinical Impression: Nausea vomiting and diarrhea Upper respiratory infection Qualifiers: URI type: unspecified URI Qualified Code(s): J06.9 - Acute upper respiratory infection, unspecified Episode of syncope Qualifiers: Syncope type: unspecified Qualified Code(s): R55 - Syncope and collapse Condition: Stable Record reviewed to determine appropriate education?: Yes Instructions: ED Syncope Vasovagal, ED Viral Syndrome Follow-Up: [facility] [Provider Group] Prescriptions: Benzonatate [Tessalon Perle] 100 mg PO TID PRN #20 capsule PRN Reason: Cough Diphenoxylate/Atropine [Lomotil] 1 each PO QID PRN #16 tablet PRN Reason: Diarrhea Comments: I think your fainting episode was just from combination of the cough and being under hydrated with the nausea and diarrhea. Your chest x-ray appears clear. Your oxygenation is good. Your heart rate and blood pressure are good. Basic blood tests are also normal. Your coated test result from the [facility] should result likely on Wednesday. Meanwhile stay protected from other people. Hopefully is just a more common head cold. Continue your Zofran as needed for nausea. You can add benzonatate if needed for cough and Lomotil for diarrhea. Discharge Date/Time: 07/15/19 13:46
[2019-07-15 10:44] LABS: BASOPHILS % (AUTO) 0.3 %; EOSINOPHILS % (AUTO) 0.3 %; HGB - HEMOGLOBIN 12.9 g/dL (12.0-16.0); LYMPHOCYTES # (AUTO) 1.6 10^3/uL (1.5-3.5); LYMPHOCYTES % (AUTO) 25.1 %; MEAN CORPUSCULAR HEMOGLOBIN 31.9 pg (27.0-31.0); MEAN CORPUSCULAR HGB CONC 33.4 g/dL (32.0-36.0); MEAN CORPUSCULAR VOLUME 95.3 fL (81.0-99.0); MEAN PLATELET VOLUME 10.7 fL (7.9-10.8); MONOCYTES # (AUTO) 0.4 10^3/uL (0.0-1.0); MONOCYTES % (AUTO) 6.6 %; NEUTROPHILS # (AUTO) 4.3 10^3/uL (1.5-6.6); NEUTROPHILS % (AUTO) 67.4 %; PLT - PLATELET COUNT 214 10^3/uL (130-450); RED BLOOD COUNT 4.05 10^6/uL (4.20-5.40); RED CELL DISTRIBUTION WIDTH 13.3 % (12.0-15.0); WHITE BLOOD COUNT 6.3 x10^3/uL (4.8-10.8)
[2019-07-15] MEDS ORDERED: ONDANSETRON 4 MG/2 ML VIAL IVP STA (10:45)
[2019-07-15] MEDS ORDERED: FAMOTIDINE 20 MG TABLET PO STA (10:45)
[2019-07-15] MEDS ORDERED: MAG HYDROX/AL HYDROX/SIMETH 30 ML UDC PO STA (10:45)
[2019-07-15] MEDS ORDERED: DIPHENOX/ATROPINE 2.5/0.025 MG TABLET PO STA (10:45)
[2019-07-15] MEDS ORDERED: SODIUM CHLORIDE 0.9% 1,000 ML IV ONE (10:45)
[2019-07-15 10:56] LABS: ALBUMIN 4.5 g/dL (3.2-5.5); ALBUMIN/GLOBULIN RATIO 1.7 (1.0-2.2); BILIRUBIN,TOTAL 0.7 mg/dL (0.2-1.0); CALCIUM 8.8 mg/dL (8.5-10.3); CREATININE 0.6 mg/dL (0.4-1.0); TOTAL PROTEIN 7.2 g/dL (6.7-8.2)
--- NOTE | 2019-07-15 11:09 | XRAY Report ---
Reason: Chest Pain Procedure Date: 07/15/2019 Accession Number: [id number] / [id number] Procedure: XR - Chest 1 View X-Ray CPT Code: 63500 Final Report FULL RESULT: EXAM: CHEST RADIOGRAPHY EXAM DATE: 07/15/2019 10:58 AM. CLINICAL HISTORY: Chest Pain. COMPARISON: CHEST 2 VIEW 04/23/2019 9:30 AM. TECHNIQUE: 1 view. FINDINGS: Lungs/Pleura: No focal opacities evident. No pleural effusion. No pneumothorax. Mediastinum: Within exam limitations, the cardiomediastinal contour is normal. Other: None. IMPRESSION: Normal single view chest. RADIA
[2019-07-15 11:12] LABS: HCG,QUALITATIVE BLOOD NEGATIVE
[2019-07-15 13:35] VITALS: BP 111/79
== END 2019-07-15 13:46 | disposition home or self-care (01) ==
LOC: EDUNIT# → ED 09:36
DX: R11.2 Nausea with vomiting, unspecified (principal); R19.7 Diarrhea, unspecified; J06.9 Acute upper respiratory infection, unspecified; R55 Syncope and collapse
CPT/HCPCS: 36415; 71045; 80053; 83690; 83735; 83880; 84484; 84703; 85025; 93005; 96361; 96374; 99284; A9270

== ENCOUNTER → 2019-09-26 | Outpatient (CLI) | payer OTHER | END | disposition EMS.NT | LOC: EMS 12:32 | PROVIDERS: ATTEND Surgery | DX: R20.2 Paresthesia of skin (principal) ==

== ENCOUNTER 2019-10-15 00:44 | Outpatient (CLI) | payer OTHER | END 2019-10-15 00:45 | disposition EMS.NT | LOC: EMS 00:44 | PROVIDERS: ATTEND Surgery | DX: R51 Headache (principal); R11.0 Nausea; H53.9 Unspecified visual disturbance ==

== ENCOUNTER 2019-10-20 20:45 | Outpatient (CLI) | payer OTHER | END 2019-10-20 20:46 | disposition EMS.NT | LOC: EMS 20:45 | PROVIDERS: ATTEND Surgery | DX: Z03.89 Encounter for observation for other suspected diseases and conditions ruled out (principal) ==

== ENCOUNTER 2019-10-31 11:20 | Emergency (ER) | payer OTHER ==
[2019-10-31 11:29] VITALS: BP 108/88
--- NOTE | 2019-10-31 12:36 | ED Physician Documentation ---
History of Present Illness - Stated complaint Stated Complaint: RT ARM RASH - Chief complaint Chief Complaint: General - Additonal information Additional information: 33-year-old female comes to the emergency department with chief complaint of bug bites on her right forearm. Reports that 4 days ago she was out in the yard and when she came in she noticed 4 bites on the arm. They have continued to itch. Patient has applied no treatment other than to place a cool compress or run it under cold water when it itches. She wants to make sure that this is not a severe allergic reaction. She would also like to know the identity of the bug that bit her. She has no cough, congestion, or respiratory concerns. Review of Systems Constitutional: denies: Fever, Chills Throat: denies: Dental pain / toothache, Oral lesions / sores Cardiac: denies: Chest pain / pressure, Palpitations Respiratory: denies: Dyspnea, Cough, Wheezing GI: denies: Abdominal Pain Skin: reports: Bite / sting (Multiple grouped bites on the right forearm just distal to the elbow.) Musculoskeletal: reports: Extremity pain, Joint pain, Joint swelling Neurologic: reports: Generalized weakness, Focal weakness, Numbness PD PAST MEDICAL HISTORY - Past Medical History Cardiovascular: None Respiratory: Sleep apnea Neuro: None Endocrine/Autoimmune: None GI: None COURIER DRIVER: None : None HEENT: None Psych: None Musculoskeletal: None Derm: None - Past Surgical History Past Surgical History: Yes /COURIER DRIVER: Other - Present Medications Home Medications: Ambulatory Orders Medication Instructions Recorded Confirmed Benzonatate [Tessalon Perle] 100 mg PO TID PRN #20 capsule 07/15/19 Diphenoxylate/Atropine [Lomotil] 1 each PO QID PRN #16 tablet 07/15/19 - Allergies Allergies/Adverse Reactions: Allergies Allergy/AdvReac Type Severity Reaction Status Date / Time ketorolac [From Toradol] AdvReac Emesis Verified 07/15/19 09:43 - Social History Does the pt smoke?: Yes Smoking Status: Current every day smoker Does the pt drink ETOH?: Yes Does the pt have substance abuse?: No - Immunizations Immunizations are current?: Yes - POLST Patient has POLST: No PD ED PE NORMAL - General General: Alert and oriented X 3, No acute distress - HEENT HEENT: EOMI - Cardiac Cardiac: RRR, No murmur - Respiratory Respiratory: No respiratory distress - Derm Derm: Normal color, Warm and dry, No rash (multiple (4) small red papules without vesicular formation, erythema or drainage of right forearm just below elbow) Results - Vitals Vitals: Vital Signs - 24 hr 10/31/19 11:23 Temperature 36.8 C Heart Rate 76 Respiratory 16 Rate Blood Pressure 108/88 H O2 Saturation 100 Oxygen O2 Source Room air PD MEDICAL DECISION MAKING - ED course Complexity details: d/w patient ED course: 33-year-old female presented to the emergency department with chief complaint of bug bites on her right forearm. She desired identification of the bug that could have bitten her. I explained that I was unable to do this. However she felt reassured no allergic reaction. We discussed routine management of this which includes [id number] hydrocortisone and a cool compress to help with itch. She felt reassured knowing that there was no signs of infection. Departure - Departure Disposition: 01 Home, Self Care Clinical Impression: Rash and nonspecific skin eruption Bug bite Qualifiers: Encounter type: initial encounter Qualified Code(s): W57.XXXA - Bitten or stung by nonvenomous insect and other nonvenomous arthropods, initial encounter Condition: Stable Instructions: ED Bite Insect Comments: The bumps on your arm are most consistent with a bug bite. There is no way to identify what type of bug bit you from the bite itself. Most often these resolve without any treatment. If you like you can apply the [id number] itch cream that you have at home or continue to place a cool compress over the bite to prevent the itch. Please return here if you have significant redness, pain, milky drainage or any concerns of infection.
== END 2019-10-31 12:50 | disposition home or self-care (01) ==
LOC: ED 11:20
DX: S50.861A Insect bite (nonvenomous) of right forearm, initial encounter (principal); W57.XXXA Bitten or stung by nonvenomous insect and other nonvenomous arthropods, initial encounter; Y92.007 Garden or yard of unspecified non-institutional (private) residence as the place of occurrence of the external cause; F17.200 Nicotine dependence, unspecified, uncomplicated
CPT/HCPCS: 99281; 99282

== ENCOUNTER 2019-11-01 12:35 | Outpatient (CLI) | payer OTHER | END 2019-11-01 12:36 | disposition critical access hospital (66) | LOC: EMS 12:35 | PROVIDERS: ATTEND Surgery | DX: S60.572A Other superficial bite of hand of left hand, initial encounter (principal); W54.0XXA Bitten by dog, initial encounter; Y92.009 Unspecified place in unspecified non-institutional (private) residence as the place of occurrence of the external cause | CPT/HCPCS: A0425; A0427 ==

== ENCOUNTER 2019-11-01 13:00 | Emergency (ER) | payer OTHER ==
[2019-11-01 13:08] VITALS: BP 112/85
--- NOTE | 2019-11-01 13:14 | ED Physician Documentation ---
History of Present Illness - Stated complaint Stated Complaint: DOG BITE - Chief complaint Chief Complaint: Trauma Ext - History obtained from History obtained from: Patient - History of Present Illness Timing: Prior to arrival Pain level max: 9 Pain level now: 0 - Additonal information Additional information: 33-year-old female presents to the emergency department with a dog bite to the dorsum of her left hand and wrist sustained about an hour prior to arrival. She was bitten by her own dog when she was attempting to keep him away from another animal. She reports that her dogs vaccinations are up-to-date. The dog bit her through her coat so she has superficial abrasions bite wounds. Tetanus is up-to -date. Review of Systems Constitutional: denies: Fever Cardiac: denies: Chest pain / pressure, Palpitations Respiratory: denies: Dyspnea, Cough Skin: reports: Lesions (superficial bite abrasion dorsum of left wrist) Musculoskeletal: reports: Joint pain PD PAST MEDICAL HISTORY - Past Medical History Past Medical History: Yes Cardiovascular: None Respiratory: Sleep apnea Neuro: None Endocrine/Autoimmune: None GI: None SET RIDER: None : None HEENT: None Psych: None Musculoskeletal: None Derm: None - Past Surgical History Past Surgical History: Yes /SET RIDER: Other - Present Medications Home Medications: Ambulatory Orders Medication Instructions Recorded Confirmed Benzonatate [Tessalon Perle] 100 mg PO TID PRN #20 capsule 07/15/19 Diphenoxylate/Atropine [Lomotil] 1 each PO QID PRN #16 tablet 07/15/19 Amox/Clav 875/125 [Augmentin] 1 each PO Q12H #10 tablet 11/01/19 - Allergies Allergies/Adverse Reactions: Allergies Allergy/AdvReac Type Severity Reaction Status Date / Time ketorolac [From Toradol] AdvReac Emesis Verified 11/01/19 13:08 - Social History Does the pt smoke?: Yes Smoking Status: Current every day smoker Does the pt drink ETOH?: Yes Does the pt have substance abuse?: No - Immunizations Immunizations are current?: Yes - POLST Patient has POLST: No PD ED PE NORMAL - General General: Alert and oriented X 3, No acute distress, Well developed/nourished - HEENT HEENT: PERRL, EOMI - Derm Derm: Warm and dry, Other (2 superficial bite abrasions on dorsum of left wrist. 1 superficial puncture wound on palmar surface left hand at base of thenar eminence.) - Extremities Extremities: No: No tenderness to palpate (Tenderness to palpation dorsum of left wrist. No swelling. Normal flexion and extension of wrist in all planes. Anesthesiology Crna strength is full and equal.) - Neuro Neuro: Alert and oriented X 3, ski patrol 2-12 intact Eye Opening: Spontaneous Motor: Obeys Commands Verbal: Oriented GCS Score: 15 Results - Vitals Vitals: Vital Signs - 24 hr 11/01/19 13:05 Temperature 36.7 C Heart Rate 70 Respiratory 14 Rate Blood Pressure 112/85 H O2 Saturation 100 Oxygen O2 Source Room air PD MEDICAL DECISION MAKING - ED course Complexity details: d/w patient ED course: 33-year-old female here with superficial bite abrasions to the dorsum of left hand and one superficial puncture wound to thenar eminence of left hand sustained from her dog this afternoon. - Will prescribe Augmentin as prophylaxis out of an abundance of caution. - Patient's tetanus is up-to-date. per pt her dog is utd on vaccinations - recommend abx ointment to the abrasions and solitary puncture wound. emergent return precautions discussed for concerns of infection Departure - Departure Disposition: 01 Home, Self Care Clinical Impression: Dog bite Qualifiers: Encounter type: initial encounter Qualified Code(s): W54.0XXA - Bitten by dog, initial encounter Condition: Stable Instructions: ED Bite Animal General Prescriptions: Amox/Clav 875/125 [Augmentin] 1 each PO Q12H #10 tablet Comments: I have written a prescription for antibiotics. Please fill and begin taking as prescribed. You may use a cool compress to help with pain. Alternatively you may use Tylenol or ibuprofen [id number]-cunpoms. If you develop redness, swelling, milky drainage or have any fevers or concerns of infection return to the emergency department for another look. You may place any antibiotic ointment such as Neosporin or bacitracin over the abrasions and bite wound.
== END 2019-11-01 13:41 | disposition home or self-care (01) ==
LOC: EDUNIT# → ED 13:00
DX: S60.572A Other superficial bite of hand of left hand, initial encounter (principal); S60.872A Other superficial bite of left wrist, initial encounter; W54.0XXA Bitten by dog, initial encounter; Y93.89 Activity, other specified; F17.200 Nicotine dependence, unspecified, uncomplicated
CPT/HCPCS: 99283; 99284

== ENCOUNTER 2019-11-27 23:38 | Outpatient (CLI) | payer OTHER | END 2019-11-27 23:39 | disposition critical access hospital (66) | LOC: EMS 23:38 | PROVIDERS: ATTEND Surgery | DX: R07.9 Chest pain, unspecified (principal) | CPT/HCPCS: A0425; A0427 ==

== ENCOUNTER 2019-12-04 16:40 | Outpatient (CLI) | payer OTHER | END 2019-12-04 16:41 | disposition EMS.NT | LOC: EMS 16:40 | PROVIDERS: ATTEND Surgery | DX: R07.89 Other chest pain (principal) ==

== ENCOUNTER 2020-02-13 17:14 | Outpatient (CLI) | payer OTHER | END 2020-02-13 17:15 | disposition EMS.NT | LOC: EMS 17:14 | PROVIDERS: ATTEND Surgery | DX: R68.83 Chills (without fever) (principal); R11.0 Nausea ==

== ENCOUNTER 2020-02-13 18:01 | Emergency (ER) | payer OTHER ==
[2020-02-13 18:47] LABS: BASOPHILS % (AUTO) 0.6 %; EOSINOPHILS # (AUTO) 0.2 10^3/uL (0.0-0.7); EOSINOPHILS % (AUTO) 3.6 %; HGB - HEMOGLOBIN 12.4 g/dL (12.0-16.0); LYMPHOCYTES # (AUTO) 1.5 10^3/uL (1.5-3.5); LYMPHOCYTES % (AUTO) 31.6 %; MEAN CORPUSCULAR HEMOGLOBIN 32.2 pg (27.0-31.0); MEAN CORPUSCULAR HGB CONC 33.6 g/dL (32.0-36.0); MEAN CORPUSCULAR VOLUME 95.8 fL (81.0-99.0); MEAN PLATELET VOLUME 10.8 fL (7.9-10.8); MONOCYTES # (AUTO) 0.3 10^3/uL (0.0-1.0); MONOCYTES % (AUTO) 7.2 %; NEUTROPHILS # (AUTO) 2.7 10^3/uL (1.5-6.6); NEUTROPHILS % (AUTO) 56.8 %; PLT - PLATELET COUNT 198 10^3/uL (130-450); RED BLOOD COUNT 3.85 10^6/uL (4.20-5.40); RED CELL DISTRIBUTION WIDTH 13.7 % (12.0-15.0); WHITE BLOOD COUNT 4.8 x10^3/uL (4.8-10.8)
[2020-02-13 19:02] LABS: ALBUMIN 4.3 g/dL (3.2-5.5); ALBUMIN/GLOBULIN RATIO 1.8 (1.0-2.2); BILIRUBIN,TOTAL 0.5 mg/dL (0.2-1.0); CREATININE 0.8 mg/dL (0.4-1.0); TOTAL PROTEIN 6.7 g/dL (6.7-8.2)
--- NOTE | 2020-02-13 19:18 | XRAY Report ---
PROCEDURE: Chest 1 View X-Ray INDICATIONS: Chest Pain TECHNIQUE: One view of the chest was acquired. COMPARISON: 11/28/2019 FINDINGS: Surgical changes and devices: None. Lungs and pleura: No pleural effusions or pneumothorax. Lungs are clear. Mediastinum: Mediastinal contours appear normal. Heart size is normal. Bones and chest wall: No suspicious bony lesions. Overlying soft tissues appear unremarkable. IMPRESSION: No evidence acute pulmonary process. Reviewed by: Lazaro Briceno MD on 02/13/2020 7:17 PM PDT Approved by: Lazaro Briceno MD on 02/13/2020 7:17 PM PDT Station ID: [id number]
--- NOTE | 2020-02-13 19:31 | ED Physician Documentation ---
History of Present Illness - Stated complaint Stated Complaint: MARY ANN DAWN - Chief complaint Chief Complaint: Cardiac - Additonal information Additional information: 34-year-old female presents to the emergency department with acute complaint of chest pain and shortness of air. She reports that she was watching TV began to get very nauseated and felt like she had [id number]-[id number] in her chest. She denies radiation of pain. She denies any previous history of coronary artery disease or complications with her heart. She has been evaluated before for chest pain similarly. She denies unilateral leg swelling any recent surgery or immobilization. She is not taking any hormones. No personal history of blood clots or cancer. She denies calf pain. At the time of my evaluation here in the emergency department patient denies that she has chest pain or feels short of air. She reports that right now she feels back to normal Review of Systems Constitutional: reports: Reviewed and negative Eyes: reports: Reviewed and negative Nose: reports: Reviewed and negative Throat: reports: Reviewed and negative Cardiac: reports: Chest pain / pressure. 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: None : None HEENT: None Psych: None Musculoskeletal: None Derm: None - Past Surgical History Past Surgical History: Yes /GROCERY CHECKER: Other - Present Medications Home Medications: Ambulatory Orders Medication Instructions Recorded Confirmed Cephalexin [Keflex] 500 mg PO Q6HR 10 Days #39 capsule 02/10/20 02/10/20 Sulfamethoxazole/Trimethoprim 1 each PO BID 7 Days #14 tablet 02/10/20 [Sulfamethoxazole-Tmp Ds Tablet] - Allergies Allergies/Adverse Reactions: Allergies Allergy/AdvReac Type Severity Reaction Status Date / Time ketorolac [From Toradol] AdvReac Emesis Verified 02/13/20 18:17 - Social History Does the pt smoke?: Yes Smoking Status: Current every day smoker Does the pt drink ETOH?: Yes Does the pt have substance abuse?: No - Immunizations Immunizations are current?: Yes - POLST Patient has POLST: No PD ED PE EXPANDED - General General: Alert, Anxious. No: No acute distress - Neck Neck: No: JVD present - Cardiac Cardiac: Regular Rate, Regular Rhythm, Radial strong equal, Femoral strong equal, Pedal strong equal, Cap refill < 2 sec. No: Murmur Present - Respiratory Respiratory: Clear to ausultation nunu. No: Distress, Labored - Abdomen Abdomen: Normal Bowel sounds. No: Tender to palpation - Derm Derm: Normal color. No: Rash - Neuro Neuro: Alert and Oriented X 3, CNII-XII intact - GCS Eye Opening: Spontaneous Motor: Obeys Commands Verbal: Oriented Total: 15 Results - Vitals Vitals: Vital Signs - 24 hr 02/13/20 02/13/20 18:13 19:16 Temperature 36.6 C 36.6 C Heart Rate 68 79 Respiratory 11 L 18 Rate Blood Pressure 114/92 H 106/80 O2 Saturation 99 100 Oxygen O2 Source Room air - EKG (time done) 1806 Rate: Rate (enter#) (71) Rhythm: NSR [place]: Normal Intervals: Normal DC QRS: Normal Ischemia: Normal ST segments Compare to prior EKG: Unchanged from prior EKG Computer interpretation: Agree with computer - Labs Labs: Laboratory Tests 02/13/20 02/13/20 02/13/20 18:42 18:42 18:42 WBC 4.8 RBC 3.85 L Hgb 12.4 Hct 36.9 L MCV 95.8 MCH 32.2 H MCHC 33.6 RDW 13.7 Plt Count 198 MPV 10.8 Neut # (Auto) 2.7 Lymph # (Auto) 1.5 Alexander # (Auto) 0.3 Eos # (Auto) 0.2 Baso # (Auto) 0.0 Absolute Nucleated RBC 0.00 Nucleated RBC % 0.0 D-Dimer Sodium 134 L Potassium 3.5 Chloride 102 Carbon Dioxide 22 Anion Gap 10.0 BUN 13 Creatinine 0.8 Estimated GFR (MDRD) 83 L Glucose 103 H Calcium 9.0 Total Bilirubin 0.5 AST 18 ALT 14 Alkaline Phosphatase 38 L Troponin I High Sens < 2.3 L Total Protein 6.7 Albumin 4.3 Globulin 2.4 Albumin/Globulin Ratio 1.8 Lipase 32 02/13/20 18:42 WBC RBC Hgb Hct MCV MCH MCHC RDW Plt Count MPV Neut # (Auto) Lymph # (Auto) Alexander # (Auto) Eos # (Auto) Baso # (Auto) Absolute Nucleated RBC Nucleated RBC % D-Dimer 550.3 H Sodium Potassium Chloride Carbon Dioxide Anion Gap BUN Creatinine Estimated GFR (MDRD) Glucose Calcium Total Bilirubin AST ALT Alkaline Phosphatase Troponin I High Sens Total Protein Albumin Globulin Albumin/Globulin Ratio Lipase - Rads (name of study) cxr Radiology: Final report received (No acute cardiopulmonary process) PD MEDICAL DECISION MAKING - ED course Complexity details: reviewed results, re-evaluated patient, considered differential, d/w patient, d/w family ED course: 34-year-old female presents to the emergency department for evaluation of chest pain that she got when she was watching TV. At the time that she finally arrived in the emergency department she denied that she had any further chest pain or shortness of breath. Her ECG is nonischemic. Her high-sensitivity troponin is also negative. Her chest x-ray shows no acute focal abnormalities. On lab work a D-dimer was completed and it is elevated at 550. I discussed with the patient and her that this could be a sign of a pulmonary embolus. We discussed that she had a similar presentation in April of this year in which she had a D-dimer of greater than [address] angio was negative. However patient and her declined to proceed with the CT pulmonary angiography this evening, though it was offered. I did spend a fair amount of time at the bedside with the patient and her and utilized shared decision making to make this decision. They would like to discuss her recurrent chest pain with primary care provider. At this time on reevaluation she is free of chest pain, she has normal vitals, and no hypoxia. Via Wells criteria she has low risk of having an identified pulmonary embolus. She is also negative for PE based on PERC criteria. Departure - Departure Disposition: 01 Home, Self Care Clinical Impression: Chest pain Qualifiers: Chest pain type: unspecified Qualified Code(s): R07.9 - Chest pain, unspecified Condition: Stable Record reviewed to determine appropriate education?: Yes Follow-Up: DANISHA XAVIER DO [Primary Care Provider] - Comments: Today in the emergency department your ECG was essentially normal. Your chest x-ray was normal. All your labs were also essentially normal with the exception of your D-dimer. This was elevated today. It has been similarly elevated in the past. At that time you did have a CT angiogram completed that did not show a pulmonary embolus. I have offered you a CT angiogram today but you have declined this test. If at any point you develop worsening chest pain, have any fainting episodes or would like to have your CT angiogram completed you may return to the emergency department. Please discuss this ED visit with your primary care doctor.
[2020-02-13 20:44] VITALS: BP 101/80
== END 2020-02-13 20:50 | disposition home or self-care (01) ==
LOC: ED 18:01
DX: R07.9 Chest pain, unspecified (principal); R79.89 Other specified abnormal findings of blood chemistry; F17.200 Nicotine dependence, unspecified, uncomplicated
CPT/HCPCS: 36415; 71045; 80053; 83690; 84484; 85025; 85379; 93005; 99283; 99284

== ENCOUNTER 2020-03-11 11:34 | Day surgery (SDC) | payer OTHER ==
[2020-03-11] MEDS ORDERED: LIDOCAINE-MPF 2% 5 ML VIAL IM ONE (11:35)
[2020-03-11] MEDS ORDERED: fentaNYL 100 MCG/2 ML VIAL IVP ONE ×2 (11:35)
[2020-03-11] MEDS ORDERED: DEXAMETHASONE 4 MG/ML VIAL IVP ONE (11:35)
[2020-03-11] MEDS ORDERED: ONDANSETRON 4 MG/2 ML VIAL IVP ONE (11:35)
[2020-03-11] MEDS ORDERED: PROPOFOL 200 MG/20 ML VIAL IVP ONE (11:35)
[2020-03-11] MEDS ORDERED: BUPIVACAINE 0.25% PF 30 ML VIAL ONE (12:06)
[2020-03-11] MEDS ORDERED: HYDROmorphone 0.5 MG/0.5 ML SYRINGE IVP PRN (12:08)
[2020-03-11] MEDS ORDERED: METOCLOPRAMIDE 10 MG/2 ML VIAL IVP PRN (12:08)
[2020-03-11] MEDS ORDERED: ATROPINE ABBOJECT 1 MG/10 ML SYRINGE IVP PRN (12:08)
[2020-03-11] MEDS ORDERED: ePHEDrine 50 MG/ML VIAL IVP PRN (12:08)
[2020-03-11] MEDS ORDERED: ONDANSETRON 4 MG/2 ML VIAL IVP PRN ×2 (12:08→16:02)
[2020-03-11] MEDS ORDERED: NALOXONE 0.4 MG/ML VIAL IVP PRN (12:08)
[2020-03-11] MEDS ORDERED: fentaNYL 100 MCG/2 ML VIAL IVP PRN (12:08)
[2020-03-11] MEDS ORDERED: MORPHINE 2 MG/ML CARPUJECT IVP PRN (12:08)
[2020-03-11] MEDS ORDERED: CEFAZOLIN SODIUM IN 0.9 % NACL 2 GM/100 ML BAG IV ONE (12:15)
[2020-03-11 12:23] LABS: HCG UR QUAL NEGATIVE
[2020-03-11] MEDS ORDERED: LACTATED RINGERS 1,000 ML IV ONE ×2 (12:41→16:03)
[2020-03-11] MEDS ORDERED: SCOPOLAMINE PATCH TOP ONE (12:42)
--- NOTE | 2020-03-11 12:59 | ANESTHESIA ---
Pre-Anesthesia VS, & Labs - Diagnosis Left Pinky Finger Fx - Procedure Left pinky ORIF Vital Signs: Temp Pulse Resp BP Pulse Ox 37 C 51 L 16 124/84 H 100 03/11/20 12:25 03/11/20 12:25 03/11/20 12:25 03/11/20 12:25 03/11/20 12:25 Height: 5 ft 4 in Weight (kg): 43.5 kg Body Mass Index: 16.5 BMI Classification: Underweight - NPO >8 hours - Is Patient ?: No Home Medications and Allergies Home Medications: Ambulatory Orders Cholecalciferol (Vitamin D3) [Vitamin D3] 1,250 mcg PO 03/07/20 Active Medications Atropine Sulfate () 0.5 mg IVP Q5M PRN PRN Reason: Bradycardia Stop: 03/12/20 12:08 Ephedrine Sulfate () 10 mg IVP Q5M PRN PRN Reason: HYPOTENSION Stop: 03/12/20 12:08 Fentanyl (Fentanyl) 25 - 50 mcg IVP Q5M PRN PRN Reason: BREAKTHROUGH PAIN (2nd Choice) Stop: 03/12/20 12:08 Hydromorphone HCl (Dilaudid Inj Syringe) 0.2 - 0.6 mg IVP Q5M PRN PRN Reason: PAIN (First Choice) Stop: 03/12/20 12:08 Lactated Ringer's (Lr) 1,000 mls @ 100 mls/hr IV .Q10H LJ Stop: 03/11/20 22:59 Metoclopramide HCl (Reglan Inj) 10 mg IVP Q6HR PRN PRN Reason: N/V not relieved by Zofran Morphine Sulfate (Morphine (Carpuject)) 2 - 4 mg IVP Q5M PRN PRN Reason: PAIN (3rd Choice) Stop: 03/12/20 12:08 Naloxone HCl (Narcan) 0.1 mg IVP Q2M PRN PRN Reason: RESP RATE <8 Stop: 03/12/20 12:08 Ondansetron HCl (Zofran Inj) 4 mg IVP ONCE PRN PRN Reason: N/V (First Choice) Stop: 03/12/20 12:08 Cholecalciferol (Vitamin D3) [Vitamin D3] 1,250 mcg PO 03/07/20 Allergies/Adverse Reactions: Allergies Allergy/AdvReac Type Severity Reaction Status Date / Time ketorolac [From Toradol] AdvReac Emesis Verified 03/07/20 09:24 Anes History & Medical History - Anesthetic History Anesthesia Complications: reports: No previous complications Family history of Anesthesia Complications: Denies Family history of Malignant Hyperthermia: Denies - Medical History Cardiovascular: reports: None Pulmonary: reports: None Gastrointestinal: reports: None Urinary: reports: None Neuro: reports: None Musculoskeletal: reports: Other Endocrine/Autoimmune: reports: None Blood Disorders: reports: None Skin: reports: None Smoking Status: Current every day smoker - Surgical History Gynecologic: LEEP (Cervical surgery), Other Exam Dental: WNL Mouth Openin Fingerbreadth Neck Mobility: Normal Mallampati classification: I Thyromental Distance: 4-6 cm Respiratory: Lungs clear, Normal breath sounds, No respiratory distress, No accessory muscle use Cardiovascular: Regular rate, Normal S1, Normal S2, No murmurs Plan Anesthesia Type: General Consent for Procedure(s) Verified and Reviewed: Yes Code Status: Attempt Resuscitation ASA classification: 2-Mild systemic disease (Smoker) Is this case an emergency?: No
[2020-03-11] MEDS ORDERED: SCOPOLAMINE PATCH TOP SCH (13:00)
[2020-03-11] MEDS ORDERED: LACTATED RINGERS 1,000 ML IV SCH (13:00)
[2020-03-11] MEDS ORDERED: BUPIVACAINE 0.25% PF 30 ML VIAL SUBQ ONE (13:17)
[2020-03-11] MEDS ORDERED: ACETAMINOPHEN 1,000 MG/100 ML 100 ML IV ONE (13:19)
[2020-03-11] MEDS ORDERED: oxyCODONE 5 MG TABLET PO PRN (16:02)
--- NOTE | 2020-03-11 16:20 | OPERATIVE REPORT ---
Operative Report - Other Other Information/Narrative: Date of surgery: 11 March 2020 Preoperative diagnosis: Left small finger P2 fracture, malunited Procedure performed: Left small finger P2 osteotomy and fixation, ORIF Postoperative diagnosis: same as above EBL: 10 cc Findings: Fracture had healed malunited. Osteotomy was performed and fracture was fixed. Anesthesia: General Implants: 1.3mm plate with 4 screws Postop Plan: Ulnar gutter splint for 2 weeks. Finger splint until 4 weeks. active motion until 6 weeks passive and active after that. Procedure in Detail: The patient was met in the preop hold area and the site was marked. Consent was verified and H&P was updated. she desired to proceed. She was brought to the operating room and surrendered to anesthesia. The left arm was prepped and draped in the typical fashion. A timeout was held and all were in agreement so we proceeded. An esmarch was used to exsanguinate the limb and the touniquet was elevated to 250mmhg. Total tourniquet time was 130 minutes. A midlateral approach was used, staying dorsal to the neurovascular bundle. The lateral band was retracted dorsally. The central slip was left intact. Fluoroscopy was used to identify the fracture line. A thin osteotome was used to exploit the prior fracture and the osteotomy was completed. There was some fragmentation on the ulnar side. A clinical reduction was performed with traction and rotation. Fluoroscopy confirmed reduction. A k-wire was then placed in the base under fluoroscopic guidance. A 4 hole plate was created and sized under xray. It was then bent and slid over the k wire. A screw was placed in the second hole and this brought the fragment down nicely. Additional screws were added to the 3rd and 4th holes. The reduction was maintained. There was a slight amount of extention, but no rotation on final images. Clinically, the finger was straight. The tourniquet was let down and hemostasis was obtained. The wound was irrigated. The skin was closed with nylon. 6cc of local anesthetic was placed at the based of the digit. A sterile dressing and ulnar gutter splint was applied. She was awakened and transfered to recovery in stable condition.
[2020-03-11 17:08] VITALS: BP 137/89
--- NOTE | 2020-03-11 18:41 | ANESTHESIA POST OP EVALUATION ---
Anesthesia Post Eval - Post Anesthesia Eval Vitals: Last Vital Signs Temp 37.6 C 03/11/20 17:00 Pulse 72 03/11/20 17:00 Resp 16 03/11/20 17:00 BP 137/89 H 03/11/20 17:00 Pulse Ox 98 03/11/20 17:00 CV Function Including HR & BP: positive: Stable Pain Control: positive: Satisfactory Nausea & Vomiting: positive: Negative Mental Status: positive: Baseline Respiratory Status: Airway Patent Hydration Status: Satisfactory Anesthesia Complications: positive: None (Discharged home. No complaints.)
== END 2020-03-11 11:35 | disposition home or self-care (01) ==
LOC: SDS 11:34
PROVIDERS: ATTEND Orthopaedic Surgery
DX: S62.62 Displaced fracture of middle phalanx of finger (principal); F17.210 Nicotine dependence, cigarettes, uncomplicated
CPT/HCPCS: 81025

== ENCOUNTER 2020-03-24 11:50 | Emergency (ER) | payer OTHER ==
[2020-03-24] MEDS ORDERED: BUPIVACAINE 0.5% PF 10 ML VIAL SUBQ STA (13:11)
[2020-03-24] MEDS ORDERED: CYCLOBENZAPRINE 10 MG TABLET PO STA (13:11)
--- NOTE | 2020-03-24 13:14 | ED Physician Documentation ---
PD HPI HEADACHE - Stated complaint Stated Complaint: HEAD PX - Chief complaint Chief Complaint: Neuro - History obtained from History obtained from: Patient - History of Present Illness Worst headache ever?: No: Worst headache ever? - Additional information Additional information: She had her hair dyed this week, she was at the salon 2 days in a row for a total of 14 hours. During that time she had to lay with the occiput on the edge of the sink for a total of about 2-1/2 hours. She developed a gradual onset posterior right-sided headache after this which is worse if she turns her neck. No fevers, light sensitivity, or nausea. Review of Systems Constitutional: denies: Fever, Chills Eyes: denies: Photophobia Ears: denies: Loss of hearing, Ear pain Nose: denies: Rhinorrhea / runny nose, Congestion PD PAST MEDICAL HISTORY - Past Medical History Cardiovascular: None Respiratory: None Neuro: None Endocrine/Autoimmune: None GI: None ELECTROTYPER: None : None HEENT: None Psych: None Musculoskeletal: Other Derm: None - Past Surgical History Past Surgical History: Yes /ELECTROTYPER: LEEP (Cervical surgery), Other - Present Medications Home Medications: Ambulatory Orders Medication Instructions Recorded Confirmed Cholecalciferol (Vitamin D3) 1,250 mcg PO 03/07/20 [Vitamin D3] Cyclobenzaprine [Flexeril] 10 mg PO TID PRN #20 tablet 03/24/20 - Allergies Allergies/Adverse Reactions: Allergies Allergy/AdvReac Type Severity Reaction Status Date / Time ketorolac [From Toradol] AdvReac Emesis Verified 03/07/20 09:24 - Social History Does the pt smoke?: Yes Smoking Status: Current every day smoker Does the pt drink ETOH?: Yes Does the pt have substance abuse?: No - Immunizations Immunizations are current?: Yes - POLST Patient has POLST: No PD ED PE NORMAL - Vitals Vital signs reviewed: Yes - General General: Alert and oriented X 3, No acute distress - HEENT HEENT: PERRL, EOMI - Neck Neck: Other (She has some tenderness of the right occipital protuberance and right sternocleidomastoid without meningismus.) - Neuro Neuro: Alert and oriented X 3, 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 PD MEDICAL DECISION MAKING - ED course ED course: Headache very consistent with a muscular/tension headache from laying on the side of the sink to have her hair dyed. Nothing in the history or physical would suggest a more serious etiology such as subarachnoid hemorrhage or meningitis. Departure - Departure Disposition: 01 Home, Self Care Clinical Impression: Tension headache Condition: Good Record reviewed to determine appropriate education?: Yes Instructions: ED Headache Tension Prescriptions: Cyclobenzaprine [Flexeril] 10 mg PO TID PRN #20 tablet PRN Reason: Spasms Comments: Return As needed or if worsening or if new symptoms develop. Follow-up with your doctor. Discharge Date/Time: 03/24/20 13:35
[2020-03-24 13:35] VITALS: BP 109/74
== END 2020-03-24 13:35 | disposition home or self-care (01) ==
LOC: ED 11:50
DX: G44.209 Tension-type headache, unspecified, not intractable (principal); R22.0 Localized swelling, mass and lump, head; F17.200 Nicotine dependence, unspecified, uncomplicated
CPT/HCPCS: 64405; 99282; 99284; A9270; 64450

== ENCOUNTER 2020-04-25 11:17 | Outpatient (CLI) | payer OTHER ==
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
== END 2020-04-25 11:18 ==
LOC: EMS 11:17
PROVIDERS: ATTEND Surgery
DX: R07.9 Chest pain, unspecified (principal)

== ENCOUNTER 2020-06-29 17:07 | Emergency (ER) | payer OTHER ==
[2020-06-29 17:37] LABS: BILIRUBIN,URINE NEGATIVE (NEGATIVE); GLUCOSE, URINE (UA) NEGATIVE (NEGATIVE); KETONES,URINE (UA) NEGATIVE (NEGATIVE); LEUKOCYTE ESTERASE, URINE NEGATIVE (NEGATIVE); NITRITE,URINE NEGATIVE (NEGATIVE); OCCULT BLOOD,URINE NEGATIVE (NEGATIVE); PROTEIN,URINE NEGATIVE (NEGATIVE); UROBILINOGEN,URINE 0.2 (NORMAL) E.U./dL (NORMAL)
[2020-06-29 17:40] LABS: CLARITY,URINE CLEAR (CLEAR)
[2020-06-29 17:41] LABS: HCG UR QUAL NEGATIVE
[2020-06-29 17:49] LABS: BASOPHILS % (AUTO) 0.3 %; EOSINOPHILS # (AUTO) 0.1 10^3/uL (0.0-0.7); EOSINOPHILS % (AUTO) 0.9 %; HCT - HEMATOCRIT 39.2 % (37.0-47.0); HGB - HEMOGLOBIN 13.2 g/dL (12.0-16.0); LYMPHOCYTES % (AUTO) 28.8 %; MEAN CORPUSCULAR HEMOGLOBIN 32.3 pg (27.0-31.0); MEAN CORPUSCULAR HGB CONC 33.7 g/dL (32.0-36.0); MEAN CORPUSCULAR VOLUME 95.8 fL (81.0-99.0); MEAN PLATELET VOLUME 10.4 fL (7.9-10.8); MONOCYTES # (AUTO) 0.4 10^3/uL (0.0-1.0); NEUTROPHILS # (AUTO) 4.3 10^3/uL (1.5-6.6); NEUTROPHILS % (AUTO) 63.7 %; PLT - PLATELET COUNT 215 10^3/uL (130-450); RED BLOOD COUNT 4.09 10^6/uL (4.20-5.40); RED CELL DISTRIBUTION WIDTH 13.8 % (12.0-15.0); WHITE BLOOD COUNT 6.8 x10^3/uL (4.8-10.8)
[2020-06-29 18:03] LABS: ALBUMIN 4.7 g/dL (3.2-5.5); ALBUMIN/GLOBULIN RATIO 1.9 (1.0-2.2); BILIRUBIN,TOTAL 0.6 mg/dL (0.2-1.0); CALCIUM 9.4 mg/dL (8.5-10.3); CREATININE 0.7 mg/dL (0.4-1.0); POTASSIUM 3.6 mmol/L (3.5-5.0); TOTAL PROTEIN 7.2 g/dL (6.7-8.2)
--- NOTE | 2020-06-29 18:19 | ED Physician Documentation ---
History of Present Illness - Stated complaint Stated Complaint: ABD PX - Chief complaint Chief Complaint: Abd Pain - History obtained from History obtained from: Patient - History of Present Illness Timing: How many days ago (3-4) Pain level max: 5 Pain level now: 1 - Additonal information Additional information: Patient is a 34-year-old female who presents to the emergency department with right lower abdominal pain for the past 3 to 4 days. She states feels very similar to prior ovarian cysts. She states she has been having heavy vaginal bleeding, but this is improved today. She states that she had an ectopic in the past and had part of her fallopian tube on the right removed. She does not feel that she is at this time. She is concerned about another cyst. No fevers. No chills. No nausea. No vomiting. Worse with palpation, better with rest Review of Systems Ten Systems: 10 systems reviewed and negative Constitutional: denies: Fever, Chills Cardiac: denies: Chest pain / pressure Respiratory: denies: Cough GI: denies: Nausea, Vomiting : denies: Dysuria, Frequency, Hesitancy, Now EGA Skin: denies: Rash Musculoskeletal: denies: Neck pain, Back pain Neurologic: denies: Headache PD PAST MEDICAL HISTORY - Past Medical History Past Medical History: Yes Cardiovascular: None Respiratory: None Neuro: None Endocrine/Autoimmune: None GI: None MEDICAL RECEPTION SPECIALIST: Ovarian cysts : None HEENT: None Psych: None Musculoskeletal: Other Derm: None - Past Surgical History Past Surgical History: Yes /MEDICAL RECEPTION SPECIALIST: LEEP (Cervical surgery), Other - Present Medications Home Medications: Ambulatory Orders Medication Instructions Recorded Confirmed No Known Home Medications 06/29/20 06/29/20 - Allergies Allergies/Adverse Reactions: Allergies Allergy/AdvReac Type Severity Reaction Status Date / Time ketorolac [From Toradol] AdvReac Emesis Verified 06/29/20 17:22 - Social History Does the pt smoke?: Yes Smoking Status: Current every day smoker Does the pt drink ETOH?: Yes Does the pt have substance abuse?: No - Immunizations Immunizations are current?: Yes - POLST Patient has POLST: No PD ED PE NORMAL - Vitals Vital signs reviewed: Yes - General General: Alert and oriented X 3, No acute distress - HEENT HEENT: Moist mucous membranes - Neck Neck: Supple, no meningeal sign - Cardiac Cardiac: RRR, Strong equal pulses - Respiratory Respiratory: No respiratory distress, Clear bilaterally - Abdomen Abdomen: Soft, Non distended, Other (Mild tenderness palpation right pelvic. No tenderness in the right lower quadrant near McBurney's point. No peritoneal signs.) - Back Back: No CVA TTP, No spinal TTP - Derm Derm: Warm and dry, No rash - Extremities Extremities: No edema - Neuro Neuro: Alert and oriented X 3 - Psych Psych: Normal mood, Normal affect Results - Vitals Vitals: Vital Signs - 24 hr 06/29/20 06/29/20 06/29/20 17:18 17:49 19:44 Temperature 36.7 C 36.8 C 37.2 C Heart Rate 90 88 67 Respiratory 18 18 12 Rate Blood Pressure 141/97 H 119/91 H 115/79 O2 Saturation 96 96 97 Oxygen O2 Source Room air - Labs Labs: Laboratory Tests 06/29/20 06/29/20 06/29/20 17:25 17:44 17:44 WBC 6.8 RBC 4.09 L Hgb 13.2 Hct 39.2 MCV 95.8 MCH 32.3 H MCHC 33.7 RDW 13.8 Plt Count 215 MPV 10.4 Neut # (Auto) 4.3 Lymph # (Auto) 2.0 [place] # (Auto) 0.4 Eos # (Auto) 0.1 Baso # (Auto) 0.0 Absolute Nucleated RBC 0.00 Nucleated RBC % 0.0 Sodium 136 Potassium 3.6 Chloride 100 L Carbon Dioxide 25 Anion Gap 11.0 BUN 14 Creatinine 0.7 Estimated GFR (MDRD) 97 Glucose 135 H Calcium 9.4 Total Bilirubin 0.6 AST 19 ALT 16 Alkaline Phosphatase 50 Total Protein 7.2 Albumin 4.7 Globulin 2.5 Albumin/Globulin Ratio 1.9 Lipase 28 Urine Color YELLOW Urine Clarity CLEAR Urine pH 6.0 Ur Specific [place] 1.020 Urine Protein NEGATIVE Urine Glucose (UA) NEGATIVE Urine Ketones NEGATIVE Urine Occult Blood NEGATIVE Urine Nitrite NEGATIVE Urine Bilirubin NEGATIVE Urine Urobilinogen 0.2 (NORMAL) Ur Leukocyte Esterase NEGATIVE Ur Microscopic Review NOT INDICATED Urine Culture Comments NOT INDICATED Urine HCG, Qual NEGATIVE - Rads (name of study) Pelvic ultrasound Radiology: Prelim report reviewed, EMP read contemporaneously, See rad report PD MEDICAL DECISION MAKING - ED course Complexity details: reviewed results, re-evaluated patient, considered dif ferential, d/w patient ED course: 34-year-old female with pelvic pain today. This started a few days ago, resolved in the emergency department. Likely had a ruptured ovarian cyst a few days ago. She does have an ill-defined focus in her endometrium, she will follow-up with her doctor for repeat ultrasound in 6 weeks. Patient is currently asymptomatic. Would like to go home at this time. Patient counseled regarding signs and symptoms for which I believe and urgent re-evaluation would be necessary. Patient with good understanding of and agreement to plan and is co mfortable going home at this time This document was made in part using voice recognition software. While efforts are made to proofread this document, sound alike and grammatical errors may occur. IMPRESSION: 1. Ill-defined focus of increased echogenicity within the endometrium. This could represent echogenic debris versus potentially polyp. Six-week interval ultrasound follow-up is recommended. 2. Bilateral ovarian follicles, with the focus on the left possibly representing an involuting cyst. Departure - Departure Disposition: 01 Home, Self Care Clinical Impression: Pelvic pain Condition: Good Instructions: ED Pelvic Pain [facility] Follow-Up: DANISHA XAVIER DO [Primary Care Provider] - Within 1 week Comments: You likely had an ovarian cyst rupture a few days ago and that is likely the cause of your symptoms. There is also a small area of echogenic debris versus polyp in your endometrium, you should have an ultrasound in about 6 weeks. This should be scheduled with your doctor. Return if you worsen. Pelvic Ultrasound
--- NOTE | 2020-06-29 21:22 | Ultrasound Report ---
PROCEDURE: Pelvic w/Transvag+Doppler Comp INDICATIONS: pelvic pain, R TECHNIQUE: Real-time scanning was performed of the pelvic organs, with image documentation. Additional endovagi nal scanning was necessary due to incomplete visualization of the adnexal and endometrial structures by transabdominal scanning. COMPARISON: None. FINDINGS: No pathologic free abdominal or pelvic fluid. Uterus: Uterus is normal in size at 6.5 x 3.5 x 4.7 cm. The endometrium measures 8.3 mm in combined thickness. There is a mild appearance of increased echogenicity within the endometrium without increased vascula rity measuring approximately 9 x 5 x 12 mm. Ovaries: Right ovary measures 2.7 x 1.3 x 1.7 cm, volume 3.1 cc. Left ovary measures 2.4 x 1.1 x 1.9 cm, volume 2.9 cc. Bilateral areas of prominent follicles are noted. IMPRESSION: 1. Ill-defined focus of increased echogenicity within the endometrium. This could represent echogenic debris versus potentially polyp. Six-week interval ultrasound follow-up is recommended. 2. Bilateral ovarian follicles, with the focus on the left possibly representing an involuting cyst. Reviewed by: Roma Bailey MD on 06/29/2020 9:21 PM PST Approved by: Roma Bailey MD on 06/29/2020 9:21 PM PST Station ID: [id number]
[2020-06-29 21:53] VITALS: BP 116/80
== END 2020-06-29 21:53 | disposition home or self-care (01) ==
LOC: ED 17:07
DX: R10.2 Pelvic and perineal pain (principal); R93.89 Abnormal findings on diagnostic imaging of other specified body structures; F17.200 Nicotine dependence, unspecified, uncomplicated
CPT/HCPCS: 36415; 80053; 81001; 81003; 81025; 83690; 85025; 87086; 93975; 99282; 99284

== ENCOUNTER 2020-07-23 07:18 | Day surgery (SDC) | payer OTHER ==
[~2020-07-23 07:18] MED LIST: ceFAZolin 2 GM/50 ML 2 GM/50 ML BAG IV ONE
[2020-07-23] MEDS ORDERED: LIDOCAINE-MPF 2% 5 ML VIAL ONE (07:35)
[2020-07-23] MEDS ORDERED: PROPOFOL 200 MG/20 ML VIAL IVP ONE (07:35)
[2020-07-23] MEDS ORDERED: DEXAMETHASONE 4 MG/ML VIAL ONE (07:36)
[2020-07-23] MEDS ORDERED: ONDANSETRON 4 MG/2 ML VIAL ONE (07:36)
[2020-07-23] MEDS ORDERED: fentaNYL 100 MCG/2 ML VIAL ONE (07:36)
[2020-07-23] MEDS ORDERED: MIDAZOLAM 2 MG/2 ML VIAL ONE (07:36)
[2020-07-23 07:57] LABS: HCG UR QUAL NEGATIVE
[2020-07-23] MEDS ORDERED: BUPIVACAINE 0.25% PF 30 ML VIAL ONE (08:26)
[2020-07-23] MEDS ORDERED: LACTATED RINGERS 1,000 ML IV ONE ×2 (08:27→09:26)
[2020-07-23] MEDS ORDERED: fentaNYL 100 MCG/2 ML VIAL IVP PRN (08:31)
[2020-07-23] MEDS ORDERED: HYDROmorphone 0.5 MG/0.5 ML SYRINGE IVP PRN (08:31)
[2020-07-23] MEDS ORDERED: MORPHINE 2 MG/ML CARPUJECT IVP PRN (08:31)
[2020-07-23] MEDS ORDERED: ONDANSETRON 4 MG/2 ML VIAL IVP PRN ×2 (08:31→09:28)
[2020-07-23] MEDS ORDERED: ATROPINE ABBOJECT 1 MG/10 ML SYRINGE IVP PRN (08:31)
[2020-07-23] MEDS ORDERED: NALOXONE 0.4 MG/ML VIAL IVP PRN (08:31)
[2020-07-23] MEDS ORDERED: ePHEDrine 50 MG/ML VIAL IVP PRN (08:31)
[2020-07-23] MEDS ORDERED: METOCLOPRAMIDE 10 MG/2 ML VIAL IVP PRN (08:31)
--- NOTE | 2020-07-23 08:33 | ANESTHESIA ---
Pre-Anesthesia VS, & Labs - Diagnosis painful hardware left small finger - Procedure hardware removal left small finger Height: 5 ft 4 in Weight (kg): 43 kg Body Mass Index: 16.2 BMI Classification: Underweight - NPO >8 hours - Is Patient ?: No - Lab Results Lab results reviewed: Yes Home Medications and Allergies Active Medications Scopolamine HBr (Scopolamine Patch) 1 patch TOP Q3D LJ No Known Home Medications 06/29/20 Allergies/Adverse Reactions: Allergies Allergy/AdvReac Type Severity Reaction Status Date / Time ketorolac [From Toradol] AdvReac Emesis Verified 07/18/20 10:30 Anes History & Medical History - Anesthetic History Anesthesia Complications: reports: Post-Operative Nausea/Vomiting Family history of Anesthesia Complications: Denies Family history of Malignant Hyperthermia: Denies - Medical History Cardiovascular: reports: None Pulmonary: reports: None Gastrointestinal: reports: None Urinary: reports: Retention Neuro: reports: None Musculoskeletal: reports: Other Endocrine/Autoimmune: reports: None Blood Disorders: reports: None Skin: reports: None Smoking Status: Current every day smoker - Surgical History Gynecologic: reports: LEEP (Cervical surgery), Other Orthopedic: reports: Other Exam General: Alert, Oriented x3, Cooperative, No acute distress Dental: WNL Mouth Openin Fingerbreadth Neck Mobility: Normal Mallampati classification: I Plan Anesthesia Type: General, MAC, Total IV Consent for Procedure(s) Verified and Reviewed: Yes Code Status: Attempt Resuscitation ASA classification: 2-Mild systemic disease Is this case an emergency?: No
[2020-07-23] MEDS ORDERED: PROPOFOL 500 MG/50 ML 500 MG/50 ML VIAL ONE (08:34)
[2020-07-23] MEDS ORDERED: LIDOCAINE 1% 50 ML MDV ONE (08:47)
[2020-07-23] MEDS ORDERED: SCOPOLAMINE PATCH TOP SCH (09:00)
[2020-07-23] MEDS ORDERED: LACTATED RINGERS 1,000 ML IV SCH (09:00)
[2020-07-23] MEDS ORDERED: LIDOCAINE 1% 50 ML MDV SUBQ ONE ×2 (09:03)
[2020-07-23] MEDS ORDERED: BUPIVACAINE 0.25% PF 30 ML VIAL SUBQ ONE ×2 (09:03)
[2020-07-23] MEDS ORDERED: oxyCODONE 5 MG TABLET PO PRN (09:28)
--- NOTE | 2020-07-23 09:34 | OPERATIVE REPORT ---
Operative Report - Other Other Information/Narrative: Date of Surgery: 23 July 2020 Pre-Op Diagnosis: Left small finger symptomatic implant Procedure: Left small finger implant removal Postop Diagnosis: Same Primary Surgeon: Odin Figueroa Secondary Surgeon: None Complications: None Tourniquet Time: None EBL: 1 cc Postoperative Protocol: Normal use after 2 weeks. No therapy needed. Indication For Surgery: 34-year-old female sustained an rotational fracture to the P2 of the left small finger. She initially had a delayed presentation with a malunion. That malunion was taken down and fixed with a plate. 2 of the distal screws were prominent and became symptomatic in the postoperative period and she desired removal. The risks, benefits, and alternatives were discussed. Risks include pain, bleeding, infection, damage to nearby structures, numbness, lack of symptom relief, need for further surgery, DVT, PE, stroke, and . Written consent was obtained. The patient was met in the preoperative holding on the day of the procedure. Operative extremity was signed. Consent was verified. They desire to proceed. They were brought to the operating room and placed in the supine position. A surgical timeout was held will be confirmed the patient procedure, identity, allergies, antibiotics, images, laterality, and finger. After cleansing the skin with alcohol 3 cc of 1% lidocaine was placed at the base of the finger for local anesthetic. They were prepped and draped in the standard fashion. All were in agreement we proceeded. Fluoroscopy was used to confirm screw location. The plan was to remove the 2 distal screws because they were symptomatic. The other plate was left at pat ient's request. 1 cm incision was made in the distal portion of the old incision. The incision was just through the skin. I then used scissors to spread longitudinally. Under fluoroscopic guidance I placed a screwdriver onto the screw heads and remove the 2 distal screws without issue. Images confirmed complete removal and good bony callus. The healed fracture was stressed to confirm stability. The wound was irrigated copiously and closed with horizontal mattress sutures. A sterile dressing was applied. she was transferred to the recovery room in good condition.
[2020-07-23 13:30] VITALS: BP 115/75
--- NOTE | 2020-07-23 13:44 | ANESTHESIA POST OP EVALUATION ---
Anesthesia Post Eval - Post Anesthesia Eval Vitals: Last Vital Signs Temp 36.6 C 07/23/20 09:35 Pulse 75 07/23/20 13:00 Resp 16 07/23/20 13:00 BP 115/75 07/23/20 13:00 Pulse Ox 98 07/23/20 13:00 CV Function Including HR & BP: Stable Pain Control: Satisfactory Nausea & Vomiting: Negative Mental Status: Baseline Respiratory Status: Airway Patent Hydration Status: Satisfactory Anesthesia Complications: None
--- OUTSIDE RECORDS SUMMARY | 2020-07-24 03:19 | EXTERNAL MEDICAL SUMMARY RPT | Continuity of Care Document ---
:1985 Demographics Phone Unavailable Preferred Language Unknown Marital Status Unknown Caodaism Affiliation Unknown Race Unknown Ethnic Group Unknown Author Organization [place] Address [address] [place] [address] Phone Social History date description facility [id number]
== END 2020-07-23 07:19 | disposition home or self-care (01) ==
LOC: SDS 07:18
PROVIDERS: ATTEND Orthopaedic Surgery
DX: T84.84XA Pain due to internal orthopedic prosthetic devices, implants and grafts, initial encounter (principal); Y79.3 Surgical instruments, materials and orthopedic devices (including sutures) associated with adverse incidents; R63.6 Underweight; Z68.1 Body mass index [BMI] 19.9 or less, adult; F17.210 Nicotine dependence, cigarettes, uncomplicated
CPT/HCPCS: 20670; 81025; J0690; J3490; J7120

== ENCOUNTER 2020-09-20 21:49 | Emergency (ER) | payer OTHER ==
--- OUTSIDE RECORDS SUMMARY | 2020-09-20 21:52 | EXTERNAL MEDICAL SUMMARY RPT | Continuity of Care Document ---
:1985 Demographics Phone Unavailable Preferred Language Unknown Marital Status Unknown Religion Affiliation Unknown Race Unknown Ethnic Group Unknown Author Organization [facility] Address [address] [place] [address] Phone Allergies Encounters Medications Problems Results
--- OUTSIDE RECORDS SUMMARY | 2020-09-20 21:55 | EXTERNAL MEDICAL SUMMARY RPT | Continuity of Care Document ---
:1985 Demographics Phone Unavailable Preferred Language Unknown Marital Status Unknown Oriental Orthodox Affiliation Unknown Race Unknown Ethnic Group Unknown Author Organization [facility] Address [address] [place] [address] Phone Allergies Encounters Medications Problems Results
[2020-09-20 22:25] VITALS: BP 98/67
[2020-09-20] MEDS ORDERED: PROPARACAINE 0.5% OPHTH DROPS 15 ML RIGHTEYE STA (23:46)
--- NOTE | 2020-09-20 23:46 | ED Physician Documentation ---
PD HPI OPHTHO - Stated complaint Stated Complaint: RT EYE IRRITATION - Chief complaint Chief Complaint: Heent - History obtained from History obtained from: Patient - History of Present Illness Timing - onset: Today (tonight) Timing - details: Abrupt onset Pain level max: 3 Pain level now: 0 Location: Right Quality / character: No: Itching, Burning, Aching, Throbbing, Sharp Associated symptoms: No: Redness, Swelling, Tearing, Discharge, Matting, FB s ensation, Photophobia, Double vision, Decreased vision, Loss of vision, Headache Contributing factors: Other (exposed to hot vape oil). No: Wears glasses, Wears contacts Recently seen: Not recently seen - Additional information Additional information: tonight, patient was exposed to heated vape oil which splashed into her right eye. she initially had pain right eye as a result but by the time of this evaluation, she says her symptoms have resolved. 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: LEEP (Cervical surgery), Other - Present Medications Home Medications: Ambulatory Orders Medication Instructions Recorded Confirmed No Known Home Medications 06/29/20 09/20/20 - Allergies Allergies/Adverse Reactions: Allergies Allergy/AdvReac Type Severity Reaction Status Date / Time ketorolac [From Toradol] AdvReac Emesis Verified 09/20/20 22:25 - Social History Does the pt smoke?: Yes Smoking Status: Current every day smoker Does the pt drink ETOH?: Yes Does the pt have substance abuse?: No - Immunizations Immunizations are current?: Yes - POLST Patient has POLST: No PD ED PE NORMAL - Vitals Vital signs reviewed: Yes - General General: Alert and oriented X 3, No acute distress, Well developed/nourished - HEENT HEENT: PERRL, EOMI PD ED PE EXPANDED - Eyes Eyes: Right eye, Normal eyelids, Nl conjunctiva/sclera, Normal corneas, Anterior chambers clear. No: Fluorescein uptake Results - Vitals Vitals: Oxygen O2 Source Room air PD MEDICAL DECISION MAKING - ED course Complexity details: considered differential, d/w patient Departure - Departure Disposition: Home, Self Care Clinical Impression: Chemical insult, eye Condition: Good Instructions: ED Chemical Conjunctivitis Discharge Date/Time: 09/21/20 00:10
== END 2020-09-21 00:10 | disposition home or self-care (01) ==
LOC: ED 21:49
DX: T65.891A Toxic effect of other specified substances, accidental (unintentional), initial encounter (principal); H10.211 Acute toxic conjunctivitis, right eye; X58.XXXA Exposure to other specified factors, initial encounter; F17.200 Nicotine dependence, unspecified, uncomplicated
CPT/HCPCS: 99282; 99283; J3490

== ENCOUNTER 2022-01-12 09:37 | Emergency (ER) | payer OTHER ==
[2022-01-12 10:14] VITALS: BP 120/85
--- NOTE | 2022-01-12 11:14 | ED Physician Documentation ---
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 HEENT: None Psych: None Musculoskeletal: Other Derm: None - Past Surgical History Past Surgical History: Yes Ortho: Other /SPOUTER: LEEP (Cervical surgery), Other - Present Medications Home Medications: Ambulatory Orders Medication Instructions Recorded Confirmed No Known Home Medications 06/29/20 01/12/22 - Allergies Allergies/Adverse Reactions: Allergies Allergy/AdvReac Type Severity Reaction Status Date / Time ketorolac [From Toradol] AdvReac Emesis Verified 01/12/22 10:14 - Social History Does the pt smoke?: Yes Smoking Status: Current every day smoker Does the pt drink ETOH?: Yes Does the pt have substance abuse?: No - Immunizations Immunizations are current?: Yes - POLST Patient has POLST: No PD ED PE NORMAL - Vitals Vital signs reviewed: Yes - General General: Alert and oriented X 3, No acute distress - Derm Derm: Other (SMALL SCABBED LESION ANTERIOR MEDIAL R WRIST MOST C/W SCAB ABOUT 1MM DIAMETER. NO SIGN INFECTION) - Neuro Neuro: Alert and oriented X 3, Normal speech Results - Vitals Vitals: Vital Signs - 24 hr 01/12/22 10:10 Temperature 36.6 C Heart Rate 71 Respiratory 16 Rate Blood Pressure 120/85 H O2 Saturation 99 Oxygen O2 Source Room air Departure - Departure Disposition: 01 Home, Self Care Clinical Impression: Skin lesion Condition: Good Record reviewed to determine appropriate education?: Yes Comments: NOT CLEAR WHAT THIS LESION REPRESENTS BUT YOU NEED TO SEE DERMATOLOGY AND CONSIDER BIOPSY CALL YOUR PCM ON [facility] FOR REFERRAL. ONE OPTION FOR EVALUATION AND BIOPSY IS [facility] [address] [facility] [id number]
== END 2022-01-12 11:17 | disposition home or self-care (01) ==
LOC: ED 09:37
DX: L98.9 Disorder of the skin and subcutaneous tissue, unspecified (principal); F17.200 Nicotine dependence, unspecified, uncomplicated
CPT/HCPCS: 99281; 99282

== ENCOUNTER 2022-07-06 00:27 | Outpatient (CLI) | payer OTHER | END 2022-07-06 23:59 | disposition critical access hospital (66) | LOC: EMS 00:27 | DX: L50.9 Urticaria, unspecified (principal) | CPT/HCPCS: A0425; A0429 ==

== ENCOUNTER 2022-07-06 00:47 | Emergency (ER) | payer OTHER ==
--- NOTE | 2022-07-06 01:43 | ED Physician Documentation ---
History of Present Illness - Stated complaint Stated Complaint: ALLERGIC REACTION - Chief complaint Chief Complaint: Allergic Rx - History obtained from History obtained from: Patient - History of Present Illness Pain level max: 0 Pain level now: 0 - Additonal information Additional information: HPI from patient. Approximately 5 minutes after finishing dinner, she developed sudden onset right facial pruritic, raised, red, discrete lesions (this is her description, as signs/symptoms have resolved by the time of this H+P). She describes two or three such lesions, limited to the right side of her face. 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 Her signs/symptoms have completely resolved by the time of this H+P without specific intervention. She says she had one previous episode of hives thought to be allergic reaction. She denies having, or had (with this episode), dyspnea, lip/tongue/throat swelling or tightness, dyspnea, wheezing, cough, lightheadedness. She has no known food allergies and did not have any unusual food tonight. 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 HEENT: None Psych: None Musculoskeletal: Other Derm: None - Past Surgical History Past Surgical History: Yes Ortho: Other /INOCULATOR: LEEP (Cervical surgery), Other - Present Medications Home Medications: Ambulatory Orders Medication Instructions Recorded Confirmed No Known Home Medications 06/29/20 01/12/22 - Allergies Allergies/Adverse Reactions: Allergies Allergy/AdvReac Type Severity Reaction Status Date / Time ketorolac [From Toradol] AdvReac Emesis Verified 07/06/22 00:50 - Social History Does the pt smoke?: Yes Smoking Status: Current every day smoker Does the pt drink ETOH?: Yes Does the pt have substance abuse?: No - Immunizations Immunizations are current?: Yes - POLST Patient has POLST: No PD ED PE NORMAL - Vitals Vital signs reviewed: Yes - General General: Alert and oriented X 3, No acute distress, Well developed/nourished - HEENT HEENT: Moist mucous membranes, Pharynx benign - Respiratory Respiratory: No respiratory distress, Clear bilaterally - Derm Derm: Normal color, Warm and dry, No rash Results - Vitals Vitals: Oxygen O2 Source Room air PD Medical Decision Making - ED course Complexity details: considered differential, d/w patient ED course: Given complete resolution of symptoms prior to this exam, no testing nor treatment is indicated on emergent basis at this time. Return precautions discussed, recommended to patient that she seek follow up with primary care provider for reevaluation. Departure - Departure Disposition: 01 Home, Self Care Clinical Impression: Allergic reaction Qualifiers: Encounter type: initial encounter Qualified Code(s): T78.40XA - Allergy, unspecified, initial encounter Condition: Good Instructions: ED Allergic Reaction General Other Comments: Given that your symptoms have resolved without any specific intervention before the evaluation in the emergency department, no testing nor treatment is indicated at this time. As we discussed, I recommend that you follow-up with your primary care provider. This would be the for the purpose of the reevaluation and possible referral to an powder core tester if indicated Discharge Date/Time: 07/06/22 02:11
[2022-07-06 02:12] VITALS: BP 106/60
== END 2022-07-06 02:11 | disposition home or self-care (01) ==
LOC: EDUNIT# → ED 00:47
DX: T78.40XA Allergy, unspecified, initial encounter (principal); F17.200 Nicotine dependence, unspecified, uncomplicated
CPT/HCPCS: 99283

== ENCOUNTER 2022-07-24 16:12 | Outpatient (CLI) | payer OTHER | END 2022-07-24 16:13 | disposition critical access hospital (66) | LOC: EMS 16:12 | DX: R07.9 Chest pain, unspecified (principal) | CPT/HCPCS: A0425; A0429 ==

== ENCOUNTER 2022-07-24 16:19 | Emergency (ER) | payer OTHER ==
--- NOTE | 2022-07-24 16:43 | ED Physician Documentation ---
History of Present Illness - Stated complaint Stated Complaint: CP - Chief complaint Chief Complaint: Cardiac - History obtained from History obtained from: Patient, EMS - History of Present Illness Timing: Today Pain level max: 8 Pain level now: 0 - Additonal information Additional information: Patient is a 36-year-old female who presents to the emergency department stating she had chest pain earlier today. She states it lasted for about 10 minutes, she states that it felt sharp and radiated from the epigastric region up into her chest. She states that has now resolved. Patient states that this started after eating lunch and vaping marijuana. No history of young coronary disease in the family. Patient states she has not had similar symptoms previously. Denies any possibility of . No fevers. No chills. No cough. 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: LEEP (Cervical surgery), Other - Present Medications Home Medications: Ambulatory Orders Medication Instructions Recorded Confirmed No Known Home Medications 06/29/20 01/12/22 - Allergies Allergies/Adverse Reactions: Allergies Allergy/AdvReac Type Severity Reaction Status Date / Time ketorolac [From Toradol] AdvReac Emesis Verified 07/06/22 00:50 - Social History Does the pt smoke?: Yes Smoking Status: Current every day smoker Does the pt drink ETOH?: Yes Does the pt have substance abuse?: No - Immunizations Immunizations are current?: Yes - POLST Patient has POLST: No PD ED PE NORMAL - Vitals Vital signs reviewed: Yes - General General: Alert and oriented X 3, No acute distress - HEENT HEENT: PERRL, Moist mucous membranes - Neck Neck: Supple, no meningeal sign - Cardiac Cardiac: RRR, Strong equal pulses - Respiratory Respiratory: No respiratory distress, Clear bilaterally - Abdomen Abdomen: Soft, Non tender, Non distended - Back Back: No CVA TTP, No spinal TTP - Derm Derm: Warm and dry, No rash - Extremities Extremities: No edema, No calf tenderness / cord - Neuro Neuro: Alert and oriented X 3 - Psych Psych: Normal mood, Normal affect Results - Vitals Vitals: Vital Signs - 24 hr 07/24/22 07/24/22 16:23 17:36 Temperature 36.6 C Heart Rate 57 L 60 Respiratory 16 16 Rate Blood Pressure 121/81 H 121/83 H O2 Saturation 94 99 Oxygen O2 Source Room air - EKG (time done) 1640 EKG releavant findings:: EKG personally interpreted by author of this note. Relevant findings are: Rate: Rate (enter#) (67) Rhythm: NSR [place]: Normal Intervals: Normal [place] QRS: Normal Ischemia: Normal ST segments - Labs Labs: Laboratory Tests 07/24/22 07/24/22 07/24/22 16:39 16:39 16:39 WBC 8.9 RBC 3.80 L Hgb 12.8 Hct 37.5 MCV 98.7 MCH 33.7 H MCHC 34.1 RDW 13.7 Plt Count 224 MPV 10.3 Neut # (Auto) 5.9 Lymph # (Auto) 2.2 [place] # (Auto) 0.5 Eos # (Auto) 0.1 Baso # (Auto) 0.0 Absolute Nucleated RBC 0.00 Nucleated RBC % 0.0 Sodium 136 Potassium 3.5 Chloride 105 Carbon Dioxide 24 Anion Gap 7.0 BUN 8 Creatinine 0.7 Estimated GFR (MDRD) 96 Glucose 105 H Calcium 8.7 Total Bilirubin 0.5 AST 16 ALT 11 Alkaline Phosphatase 46 Troponin I High Sens < 2.3 L Total Protein 6.5 L Albumin 4.1 Globulin 2.4 Albumin/Globulin Ratio 1.7 Lipase 35 - Rads (name of study) Chest x-ray Relevant Findings:: Final report received, See rad report PD Medical Decision Making - ED course Complexity details: reviewed results, re-evaluated patient, considered differential (No ST elevation NE, no aortic dissection, no PE, no tension pneumothorax, no aortic aneurysm), d/w patient, d/w family ED course: Patient with atypical chest pain, more consistent with GI source than acute coronary syndrome. No evidence of pneumothorax. Normal EKG. No acute findings on CBC, ER abdominal panel. High-sensitivity troponin is negative. Symptoms were several hours prior to arrival. We will have her follow-up with her PCP for endoscopy, evaluation of her gallbladder and further care. Patient counseled regarding signs and symptoms for which I believe and urgent re- evaluation would be necessary. Patient with good understanding of and agreement to plan and is comfortable going home at this time This document was made in part using voice recognition software. While efforts are made to proofread this document, sound alike and grammatical errors may occur. Departure - Departure Disposition: 01 Home, Self Care Clinical Impression: Chest pain Qualifiers: Chest pain type: unspecified Qualified Code(s): R07.9 - Chest pain, unspecified Condition: Good Instructions: ED Chest Pain Atypical Unkn Cause Follow-Up: Your,doctor in 1 week [Other] Comments: Please follow-up with your doctor for further care. Please return if you worsen. Your EKG, chest x-ray and laboratory testing did not show any acute abnormalities today. It is recommended that you have your gallbladder evaluated as well as an endoscopy for your stomach. Your doctor can order these tests for you. Discharge Date/Time: 07/24/22 17:55
[2022-07-24 16:45] LABS: BASOPHILS % (AUTO) 0.5 %; EOSINOPHILS # (AUTO) 0.1 10^3/uL (0.0-0.7); EOSINOPHILS % (AUTO) 1.2 %; HCT - HEMATOCRIT 37.5 % (37.0-47.0); HGB - HEMOGLOBIN 12.8 g/dL (12.0-16.0); LYMPHOCYTES # (AUTO) 2.2 10^3/uL (1.5-3.5); LYMPHOCYTES % (AUTO) 25.3 %; MEAN CORPUSCULAR HEMOGLOBIN 33.7 pg (27.0-31.0); MEAN CORPUSCULAR HGB CONC 34.1 g/dL (32.0-36.0); MEAN CORPUSCULAR VOLUME 98.7 fL (81.0-99.0); MEAN PLATELET VOLUME 10.3 fL (7.9-10.8); MONOCYTES # (AUTO) 0.5 10^3/uL (0.0-1.0); MONOCYTES % (AUTO) 5.8 %; NEUTROPHILS # (AUTO) 5.9 10^3/uL (1.5-6.6); PLT - PLATELET COUNT 224 10^3/uL (130-450); RED CELL DISTRIBUTION WIDTH 13.7 % (12.0-15.0); WHITE BLOOD COUNT 8.9 x10^3/uL (4.8-10.8)
--- NOTE | 2022-07-24 17:01 | XRAY Report ---
PROCEDURE: Chest 1 View X-Ray INDICATIONS: Chest Pain TECHNIQUE: One view of the chest was acquired. COMPARISON: None. FINDINGS: Surgical changes and devices: None. Lungs and pleura: No pleural effusions or pneumothorax. Lungs are clear. Mediastinum: Mediastinal contours appear normal. Heart size is normal. Bones and chest wall: No suspicious bony lesions. Overlying soft tissues appear unremarkable. IMPRESSION: No acute cardiopulmonary process. Reviewed by: Reynold Oneal on 07/24/2022 5:00 PM PDT Approved by: Reynold Oneal on 07/24/2022 5:00 PM PDT Station ID: [id number]
[2022-07-24 17:16] LABS: ALBUMIN 4.1 g/dL (3.2-5.5); ALBUMIN/GLOBULIN RATIO 1.7 (1.0-2.2); BILIRUBIN,TOTAL 0.5 mg/dL (0.2-1.0); CALCIUM 8.7 mg/dL (8.5-10.3); CREATININE 0.7 mg/dL (0.4-1.0); POTASSIUM 3.5 mmol/L (3.5-5.0); TOTAL PROTEIN 6.5 g/dL (6.7-8.2)
[2022-07-24 17:37] VITALS: BP 121/83
== END 2022-07-24 17:55 | disposition home or self-care (01) ==
LOC: EDUNIT# → ED 16:19
DX: R07.89 Other chest pain (principal); F17.200 Nicotine dependence, unspecified, uncomplicated
CPT/HCPCS: 36415; 80053; 83690; 84484; 85025; 93005; 99283; 99284

== ENCOUNTER 2022-09-20 17:00 | Outpatient (CLI) | payer OTHER | END 2022-09-20 17:01 | disposition EMS.NT | LOC: EMS 17:00 | DX: F41.9 Anxiety disorder, unspecified (principal) ==

== ENCOUNTER 2022-10-09 00:36 | Outpatient (CLI) | payer OTHER | END 2022-10-09 23:59 | disposition EMS.NT | LOC: EMS 00:36 | DX: R11.2 Nausea with vomiting, unspecified (principal) ==

== ENCOUNTER 2023-04-10 15:01 | Emergency (ER) | payer OTHER ==
[2023-04-10 15:40] LABS: BASOPHILS % (AUTO) 0.5 %; EOSINOPHILS % (AUTO) 0.5 %; HCT - HEMATOCRIT 39.8 % (37.0-47.0); HGB - HEMOGLOBIN 13.2 g/dL (12.0-16.0); LYMPHOCYTES # (AUTO) 2.7 10^3/uL (1.5-3.5); LYMPHOCYTES % (AUTO) 34.7 %; MEAN CORPUSCULAR HEMOGLOBIN 32.5 pg (27.0-31.0); MEAN CORPUSCULAR HGB CONC 33.2 g/dL (32.0-36.0); MONOCYTES # (AUTO) 0.5 10^3/uL (0.0-1.0); MONOCYTES % (AUTO) 5.8 %; NEUTROPHILS # (AUTO) 4.6 10^3/uL (1.5-6.6); NEUTROPHILS % (AUTO) 58.4 %; PLT - PLATELET COUNT 261 10^3/uL (130-450); RED BLOOD COUNT 4.06 10^6/uL (4.20-5.40); RED CELL DISTRIBUTION WIDTH 13.6 % (12.0-15.0); WHITE BLOOD COUNT 7.8 x10^3/uL (4.8-10.8)
[2023-04-10 15:57] LABS: ALBUMIN 4.6 g/dL (3.2-5.5); BILIRUBIN,TOTAL 0.6 mg/dL (0.2-1.0); CALCIUM 9.1 mg/dL (8.5-10.3); CREATININE 0.8 mg/dL (0.6-1.3); POTASSIUM 3.6 mmol/L (3.5-4.5); TOTAL PROTEIN 6.9 g/dL (6.4-8.9)
[2023-04-10] MEDS ORDERED: SODIUM CHLORIDE 0.9% 1,000 ML IV STA (15:57)
[2023-04-10] MEDS ORDERED: ONDANSETRON 4 MG/2 ML VIAL IVP STA (15:57)
[2023-04-10] MEDS ORDERED: ACETAMINOPHEN 325 MG TABLET PO STA (15:59)
[2023-04-10 16:31] LABS: BILIRUBIN,URINE NEGATIVE (NEGATIVE); GLUCOSE, URINE (UA) NEGATIVE (NEGATIVE); KETONES,URINE (UA) NEGATIVE (NEGATIVE); LEUKOCYTE ESTERASE, URINE NEGATIVE (NEGATIVE); NITRITE,URINE NEGATIVE (NEGATIVE); OCCULT BLOOD,URINE NEGATIVE (NEGATIVE); PROTEIN,URINE NEGATIVE (NEGATIVE); UROBILINOGEN,URINE 0.2 (NORMAL) E.U./dL (NORMAL)
[2023-04-10 16:32] LABS: CLARITY,URINE CLEAR (CLEAR); HCG UR QUAL NEGATIVE
--- NOTE | 2023-04-10 16:41 | ED Physician Documentation ---
PD HPI ABD PAIN - Stated complaint Stated Complaint: ABD PX - Chief complaint Chief Complaint: Abd Pain - History obtained from History obtained from: Patient - Additional information Additional information: Patient is a 37-year-old female presenting for evaluation of Lower abdominal cramping and pain with associated diarrhea since yesterday. Reports having loose stools yesterday but that has resolved. Has ongoing nausea. No vomiting. Tolerating p.o. intake. No fever. Denies concerns for . Has had a prior ectopic with fallopian tube on the right removed. No vaginal discharge or bleeding. Denies dysuria or hematuria. Has not tried anything for her symptoms. Denies known sick contacts.No recent travel or antibiotic use. Review of Systems Constitutional: denies: Fever Respiratory: denies: Dyspnea GI: reports: Abdominal Pain, Nausea, Diarrhea. 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: LEEP (Cervical surgery), Other - Present Medications Home Medications: Ambulatory Orders Medication Instructions Recorded Confirmed Ondansetron Odt [Zofran] 4 mg TL Q6H PRN #10 tablet 04/10/23 - Allergies Allergies/Adverse Reactions: Allergies Allergy/AdvReac Type Severity Reaction Status Date / Time ketorolac [From Toradol] AdvReac Emesis Verified 04/10/23 16:20 - Social History Does the pt smoke?: Yes Smoking Status: Current every day smoker Does the pt drink ETOH?: Yes Does the pt have substance abuse?: No - Immunizations Immunizations are current?: Yes - POLST Patient has POLST: No PD ED PE NORMAL - General General: Alert and oriented X 3, No acute distress, Well developed/nourished - HEENT HEENT: Atraumatic, Moist mucous membranes, Pharynx benign - Neck Neck: Supple, no meningeal sign - Cardiac Cardiac: RRR, No murmur - Respiratory Respiratory: No respiratory distress, Clear bilaterally - Abdomen Abdomen: Normal bowel sounds, Soft, Non distended, Other (Mild suprapubic tenderness, no tenderness on deep palpation of right lower quadrant) - Derm Derm: Warm and dry - Neuro Neuro: Normal speech Results - Vitals Vitals: Vital Signs - 24 hr 04/10/23 04/10/23 15:19 17:00 Temperature 36.7 C 36.7 C Heart Rate 99 60 Respiratory 15 18 Rate Blood Pressure 148/96 H 133/98 H O2 Saturation 99 100 Oxygen O2 Source Room air - Labs Labs: Laboratory Tests 04/10/23 04/10/23 04/10/23 15:15 15:15 15:34 WBC 7.8 RBC 4.06 L Hgb 13.2 Hct 39.8 MCV 98.0 MCH 32.5 H MCHC 33.2 RDW 13.6 Plt Count 261 MPV 10.0 Neut # (Auto) 4.6 Lymph # (Auto) 2.7 [facility] # (Auto) 0.5 Eos # (Auto) 0.0 Baso # (Auto) 0.0 Absolute Nucleated RBC 0.00 Nucleated RBC % 0.0 Sodium Potassium Chloride Carbon Dioxide Anion Gap BUN Creatinine Estimated GFR (MDRD) Glucose Calcium Total Bilirubin AST ALT Alkaline Phosphatase Total Protein Albumin Globulin Albumin/Globulin Ratio Lipase Urine Color YELLOW Urine Clarity CLEAR Urine pH 6.0 Ur Specific [place] 1.015 Urine Protein NEGATIVE Urine Glucose (UA) NEGATIVE Urine Ketones NEGATIVE Urine Occult Blood NEGATIVE Urine Nitrite NEGATIVE Urine Bilirubin NEGATIVE Urine Urobilinogen 0.2 (NORMAL) Ur Leukocyte Esterase NEGATIVE Ur Microscopic Review NOT INDICATED Urine Culture Comments NOT INDICATED Urine HCG, Qual NEGATIVE 04/10/23 15:34 WBC RBC Hgb Hct MCV MCH MCHC RDW Plt Count MPV Neut # (Auto) Lymph # (Auto) [facility] # (Auto) Eos # (Auto) Baso # (Auto) Absolute Nucleated RBC Nucleated RBC % Sodium 138 Potassium 3.6 Chloride 105 Carbon Dioxide 28 Anion Gap 5.0 L BUN 8 Creatinine 0.8 Estimated GFR (MDRD) 82 L Glucose 112 H Calcium 9.1 Total Bilirubin 0.6 AST 15 ALT 11 Alkaline Phosphatase 52 Total Protein 6.9 Albumin 4.6 Globulin 2.3 Albumin/Globulin Ratio 2.0 Lipase 31 Urine Color Urine Clarity Urine pH Ur Specific [place] Urine Protein Urine Glucose (UA) Urine Ketones Urine Occult Blood Urine Nitrite Urine Bilirubin Urine Urobilinogen Ur Leukocyte Esterase Ur Microscopic Review Urine Culture Comments Urine HCG, Qual PD Medical Decision Making - ED course Complexity details: reviewed results, re-evaluated patient, d/w patient ED course: Patient is a 37-year-old female presenting for evaluation of lower abdominal pain with diarrhea yesterday and some nausea today. Has no right lower quadrant tenderness. CBC and chemistries were obtained and reviewed and without significant findings. Urinalysis is negative for or infection. She is feeling better here with IV fluids and Zofran. She declines need for pain medications. Repeat abdominal exam is benign. She is feeling better and would like to go home. Discussed continued supportive care as well as concerning symptoms to return for. 1646 - Patient feeling better after IV fluids and Zofran. Declines any pain medications. Repeated exam is benign. Departure - Departure Disposition: Home, Self Care Clinical Impression: Lower abdominal pain, Nausea vomiting and diarrhea Condition: Stable Instructions: ED Nausea Vomiting Prescriptions: Ondansetron Odt [Zofran] 4 mg TL Q6H PRN #10 tablet PRN Reason: Nausea / Vomiting Comments: Antinausea medication was sent to [facility] in [place].Return to the emergency department with any worsening symptoms. Forms: PCP List Discharge Date/Time: 04/10/23 17:00
[2023-04-10 17:06] VITALS: BP 133/98; O2SAT 100
== END 2023-04-10 17:00 | disposition home or self-care (01) ==
LOC: ED 15:01
DX: R10.30 Lower abdominal pain, unspecified (principal); R19.7 Diarrhea, unspecified; R11.2 Nausea with vomiting, unspecified; F17.200 Nicotine dependence, unspecified, uncomplicated
CPT/HCPCS: 36415; 80053; 81003; 81025; 83690; 85025; 96361; 96374; 99283; A9270; 81001; 87086

== ENCOUNTER 2023-05-24 14:21 | Outpatient (CLI) | payer OTHER | END 2023-05-24 14:22 | disposition critical access hospital (66) | LOC: EMS 14:21 | DX: R10.814 Left lower quadrant abdominal tenderness (principal) | CPT/HCPCS: A0425; A0429 ==

== ENCOUNTER 2023-05-24 15:12 | Emergency (ER) | payer OTHER ==
[2023-05-24 15:23] VITALS: BP 114/82; O2SAT 99
--- NOTE | 2023-05-24 15:44 | ED Physician Documentation ---
History of Present Illness - Stated complaint Stated Complaint: ABD PX - Chief complaint Chief Complaint: Abd Pain - History obtained from History obtained from: Patient - History of Present Illness Timing: Today Pain level max: 6 Pain level now: 0 - Additonal information Additional information: 37-year-old female with a known left ovarian cyst. She states that she had sharp left-sided pelvic pain today. Called 911. Pain resolved en route to the ER. No fevers. No chills. No diarrhea. No constipation. No vaginal bleeding or discharge. Currently not having any pain. Has a history of a right-sided ectopic in the past with a right-sided tubal ligation. 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 , Ovarian cysts : Retention HEENT: None Psych: None Musculoskeletal: Other Derm: None - Past Surgical History Past Surgical History: Yes Ortho: Other /SALES UTILITY REPRESENTATIVE: LEEP (Cervical surgery), Other - Present Medications Home Medications: Ambulatory Orders Medication Instructions Recorded Confirmed No Known Home Medications 05/24/23 05/24/23 - Allergies Allergies/Adverse Reactions: Allergies Allergy/AdvReac Type Severity Reaction Status Date / Time ketorolac [From Toradol] AdvReac Emesis Verified 05/24/23 15:16 - Social History Does the pt smoke?: Yes Smoking Status: Current every day smoker Does the pt drink ETOH?: Yes Does the pt have substance abuse?: No - Immunizations Immunizations are current?: Yes - POLST Patient has POLST: No PD ED PE NORMAL - Vitals Vital signs reviewed: Yes - General General: Alert and oriented X 3, No acute distress - HEENT HEENT: PERRL, Moist mucous membranes - Neck Neck: Supple, no meningeal sign - Cardiac Cardiac: RRR, Strong equal pulses - Respiratory Respiratory: No respiratory distress, Clear bilaterally - Abdomen Abdomen: Soft, Non tender, Non distended - Back Back: No CVA TTP, No spinal TTP - Derm Derm: Warm and dry - Extremities Extremities: No edema, No calf tenderness / cord - Neuro Neuro: Alert and oriented X 3 - Psych Psych: Normal mood, Normal affect Results - Vitals Vitals: Vital Signs - 24 hr 05/24/23 15:17 Temperature 36.9 C Heart Rate 67 Respiratory 16 Rate Blood Pressure 114/82 H O2 Saturation 99 Oxygen O2 Source Room air - Labs Labs: Laboratory Tests 05/24/23 05/24/23 05/24/23 15:34 15:34 15:34 WBC 9.6 RBC 3.98 L Hgb 13.1 Hct 39.3 MCV 98.7 MCH 32.9 H MCHC 33.3 RDW 13.7 Plt Count 196 MPV 10.2 Neut # (Auto) 7.3 H Lymph # (Auto) 1.6 [place] # (Auto) 0.5 Eos # (Auto) 0.1 Baso # (Auto) 0.0 Absolute Nucleated RBC 0.00 Nucleated RBC % 0.0 Sodium 136 Potassium 3.7 Chloride 105 Carbon Dioxide 24 Anion Gap 7.0 BUN 13 Creatinine 0.7 Estimated GFR (MDRD) 95 Glucose 109 H Calcium 9.0 Total Bilirubin 0.7 AST 16 ALT 11 Alkaline Phosphatase 54 Total Protein 6.5 Albumin 4.2 Globulin 2.3 Albumin/Globulin Ratio 1.8 Lipase 17 Serum HCG, Qual NEGATIVE - Rads (name of study) Pelvic ultrasound Relevant Findings:: Final report received, See rad report PD Medical Decision Making - ED course Complexity details: reviewed results, re-evaluated patient, considered differential, d/w patient ED course: Patient is well-appearing, nontoxic. Afebrile. Asymptomatic in the emergency department. No significant lab abnormalities. hCG is negative. Her pelvic ultrasound does show a left corpus luteum cyst, but no other abnormalities. The cyst that she relates to having had diagnosed last month is no longer present. No vaginal bleeding, discharge or itching. No emergency medical condition at this time. No ovarian torsion. Abdomen is soft, nontender nondistended on serial exam. Patient counseled regarding signs and symptoms for which I believe and urgent re-evaluation would be necessary. Patient with good understanding of and agreement to plan and is comfortable going home at this time This document was made in part using voice recognition software. While efforts are made to proofread this document, sound alike and grammatical errors may occur. Departure - Departure Disposition: 01 Home, Self Care Clinical Impression: Cyst of ovary Qualifiers: Laterality: left Qualified Code(s): N83.202 - Unspecified ovarian cyst, left side Condition: Good Instructions: ED Cyst Ovarian Follow-Up: your,doctor in 1 week [Other] Comments: There is no evidence of ovarian torsion today. You do have a small left-sided cyst, but this is less than 1 cm. Please follow-up with your doctor for further care and return if you worsen. Forms: PCP List Discharge Date/Time: 05/24/23 17:32
[2023-05-24 15:48] LABS: BASOPHILS % (AUTO) 0.3 %; EOSINOPHILS # (AUTO) 0.1 10^3/uL (0.0-0.7); EOSINOPHILS % (AUTO) 0.8 %; HCT - HEMATOCRIT 39.3 % (37.0-47.0); HGB - HEMOGLOBIN 13.1 g/dL (12.0-16.0); LYMPHOCYTES # (AUTO) 1.6 10^3/uL (1.5-3.5); LYMPHOCYTES % (AUTO) 16.8 %; MEAN CORPUSCULAR HEMOGLOBIN 32.9 pg (27.0-31.0); MEAN CORPUSCULAR HGB CONC 33.3 g/dL (32.0-36.0); MEAN CORPUSCULAR VOLUME 98.7 fL (81.0-99.0); MEAN PLATELET VOLUME 10.2 fL (7.9-10.8); MONOCYTES # (AUTO) 0.5 10^3/uL (0.0-1.0); MONOCYTES % (AUTO) 5.6 %; NEUTROPHILS # (AUTO) 7.3 10^3/uL (1.5-6.6); NEUTROPHILS % (AUTO) 76.3 %; PLT - PLATELET COUNT 196 10^3/uL (130-450); RED BLOOD COUNT 3.98 10^6/uL (4.20-5.40); RED CELL DISTRIBUTION WIDTH 13.7 % (12.0-15.0); WHITE BLOOD COUNT 9.6 x10^3/uL (4.8-10.8)
[2023-05-24 16:09] LABS: ALBUMIN 4.2 g/dL (3.2-5.5); ALBUMIN/GLOBULIN RATIO 1.8 (1.0-2.2); BILIRUBIN,TOTAL 0.7 mg/dL (0.2-1.0); CREATININE 0.7 mg/dL (0.6-1.3); POTASSIUM 3.7 mmol/L (3.5-4.5); TOTAL PROTEIN 6.5 g/dL (6.4-8.9)
[2023-05-24 16:52] LABS: HCG,QUALITATIVE BLOOD NEGATIVE
--- NOTE | 2023-05-24 17:13 | Ultrasound Report ---
PROCEDURE: Pelvic w/Transvag+Doppler Comp INDICATIONS: pelvic pain, L, h/o cyst TECHNIQUE: Real-time scanning was performed of the pelvic organs, with image documentation. Additional endovagi nal scanning was necessary due to incomplete visualization of the adnexal and endometrial structures by transabdominal scanning. Doppler interrogation was performed of the ovaries bilaterally. COMPARISON: 06/29/2020. FINDINGS: Uterus: Uterus is retroflexed and normal in size at 6.6 x 3.5 x 4.0 cm. The myometrium is heterogen eous. The endometrium measures 5 mm in combined thickness. No fibroids. Ovaries: The right ovary measures 2.1 x 1.6 x 1.3 cm, with a calculated ovarian volume of 2.2 cc. T he left ovary measures 2.4 x 1.2 x 1.0 cm, with a calculated ovarian volume of 1.6 cc. Appropriate b lood flow to the ovaries with Doppler interrogation. Less than 12 follicles can be seen in each ova ry. No adnexal masses are seen. No cystic lesions measuring greater than 3 cm. Duplex intraovarian f low bilaterally. Other: No pathologic free abdominal or pelvic fluid. IMPRESSION: Unremarkable pelvic ultrasound. Reviewed by: Lazaro Briceno MD on 05/24/2023 5:11 PM PST Approved by: Lazaro Briceno MD on 05/24/2023 5:11 PM PST Station ID: [id number]
== END 2023-05-24 17:32 | disposition home or self-care (01) ==
LOC: EDUNIT# → EDBD → ED 15:12
DX: N83.12 Corpus luteum cyst of left ovary (principal); F17.200 Nicotine dependence, unspecified, uncomplicated
CPT/HCPCS: 36415; 80053; 83690; 84703; 85025; 93975; 99283; 99284

== ENCOUNTER 2023-08-18 17:23 | Outpatient (CLI) | payer OTHER | END 2023-08-18 23:59 | disposition EMS.NT | LOC: EMS 17:23 | DX: F22 Delusional disorders (principal); F32.A Depression, unspecified ==

== ENCOUNTER 2023-08-20 23:05 | Outpatient (CLI) | payer OTHER | END 2023-08-20 23:59 | disposition EMS.NT | LOC: EMS 23:05 | DX: R45.89 Other symptoms and signs involving emotional state (principal) ==

== ENCOUNTER 2023-08-21 16:38 | Outpatient (CLI) | payer OTHER | END 2023-08-21 23:59 | disposition EMS.NT | LOC: EMS 16:38 | DX: R20.8 Other disturbances of skin sensation (principal); M54.2 Cervicalgia; F32.A Depression, unspecified ==

== ENCOUNTER 2023-08-22 00:52 | Outpatient (CLI) | payer OTHER | END 2023-08-22 23:59 | disposition critical access hospital (66) | LOC: EMS 00:52 | DX: R45.89 Other symptoms and signs involving emotional state (principal) | CPT/HCPCS: A0425; A0429 ==

== ENCOUNTER 2023-08-22 01:12 | Emergency (ER) | payer OTHER ==
--- NOTE | 2023-08-22 01:24 | ED Physician Documentation ---
PD HPI MHE - Stated complaint Stated Complaint: MHE - Chief complaint Chief Complaint: General - History obtained from History obtained from: Patient, EMS - Additional information Additional information: 37-year-old female presents for evaluation of chest burning as well as anxiety. Patient states that she has been under a lot of stress lately as she is in the middle of her . She states that she called the medics for anxiety and chest burning. She states that when the medics arrived she felt much better already, but continued to have a slight burning sensation so decided to come in for evaluation. Patient denies wanting to harm herself, denies drug or alcohol use, denies intent to harm others. Paramedics state that they have been called out to her facility numerous times over the last several days for different reasons. They state that her house is disheveled with animal feces present. They state that she told them she felt like "2 people", but did not specify what that meant. She denied suicidal or homicidal intentions to medics. Review of Systems Constitutional: denies: Fever, Chills Cardiac: reports: Chest pain / pressure. denies: Palpitations, Calf pain Respiratory: denies: Dyspnea, Cough, Wheezing GI: denies: Abdominal Pain, Nausea, Vomiting Skin: denies: Rash, Lesions, Laceration (s) Neurologic: denies: Generalized weakness, Focal weakness, Numbness, Syncope Psychiatric: reports: Other (stress). 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 , Ovarian cysts : Retention HEENT: None Psych: None Musculoskeletal: Other Derm: None - Past Surgical History Past Surgical History: Yes Ortho: Other /AIR MARSHAL: LEEP (Cervical surgery), Other - Present Medications Home Medications: Ambulatory Orders Medication Instructions Recorded Confirmed hydrOXYzine PAMOATE [Vistaril] 25 mg PO TID PRN #30 cap 08/22/23 - Allergies Allergies/Adverse Reactions: Allergies Allergy/AdvReac Type Severity Reaction Status Date / Time ketorolac [From Toradol] AdvReac Emesis Verified 08/22/23 01:23 - Social History Does the pt smoke?: Yes Smoking Status: Current every day smoker Does the pt drink ETOH?: Yes Does the pt have substance abuse?: No - Immunizations Immunizations are current?: Yes - POLST Patient has POLST: No PD ED PE NORMAL - Vitals Vital signs reviewed: Yes - General General: Alert and oriented X 3, No acute distress, Well developed/nourished - HEENT HEENT: Atraumatic - Neck Neck: Supple, no meningeal sign - Cardiac Cardiac: RRR, Strong equal pulses - Respiratory Respiratory: No respiratory distress, Clear bilaterally - Abdomen Abdomen: Soft, Non tender, Non distended - Extremities Extremities: No deformity, No tenderness to palpate, Normal ROM s pain, No edema - Neuro Neuro: Alert and oriented X 3, cheese cutter 2-12 intact, No motor deficit, Normal speech - Psych Psych: Other (Reports stress, denies suicidal or homicidal ideations. Good eye contact, euthymic mood and affect) Results - Vitals Vitals: Vital Signs - 24 hr 08/22/23 08/22/23 01:19 01:23 Temperature 36.9 C Heart Rate 86 88 Respiratory 16 Rate Blood Pressure 137/96 H O2 Saturation 97 Oxygen O2 Source Room air - Labs Labs: Laboratory Tests 08/22/23 08/22/23 08/22/23 01:28 01:30 01:30 WBC 8.5 RBC 4.19 L Hgb 13.7 Hct 41.4 MCV 98.8 MCH 32.7 H MCHC 33.1 RDW 13.2 Plt Count 247 MPV 10.3 Neut # (Auto) 5.8 Lymph # (Auto) 2.0 [place] # (Auto) 0.6 Eos # (Auto) 0.1 Baso # (Auto) 0.0 Absolute Nucleated RBC 0.00 Nucleated RBC % 0.0 Sodium 136 Potassium 3.4 L Chloride 103 Carbon Dioxide 25 Anion Gap 8.0 BUN 6 Creatinine 0.7 Estimated GFR (MDRD) 95 Glucose 106 H Calcium 9.6 Total Bilirubin 0.4 AST 11 ALT 6 L Alkaline Phosphatase 62 Troponin I High Sens < 2.3 L Total Protein 6.8 Albumin 4.5 Globulin 2.3 Albumin/Globulin Ratio 2.0 TSH 1.06 Urine Color YELLOW Urine Clarity CLEAR Urine pH 6.5 Ur Specific [place] <=1.005 Urine Protein NEGATIVE Urine Glucose (UA) NEGATIVE Urine Ketones NEGATIVE Urine Occult Blood SMALL H Urine Nitrite NEGATIVE Urine Bilirubin NEGATIVE Urine Urobilinogen 0.2 (NORMAL) Ur Leukocyte Esterase NEGATIVE Urine RBC 0-5 Urine WBC 0-3 Ur Squamous Epith Cells RARE Squamous Urine Bacteria Rare Ur Microscopic Review INDICATED Urine Culture Comments NOT INDICATED Urine HCG, Qual NEGATIVE Urine Opiates Screen NEGATIVE Ur Buprenorphine Scrn NEGATIVE Ur Oxycodone Screen NEGATIVE Urine Methadone Screen NEGATIVE Ur Barbiturates Screen NEGATIVE Ur Tricyclics Screen NEGATIVE Ur Phencyclidine Scrn NEGATIVE Ur Amphetamine Screen NEGATIVE U Methamphetamines Scrn NEGATIVE U Benzodiazepines Scrn NEGATIVE Urine Cocaine Screen NEGATIVE U Cannabinoids Screen POSITIVE H Ur Drug Screen Comment Ethyl Alcohol < 10.0 PD Medical Decision Making - ED course Complexity details: reviewed results, re-evaluated patient, considered differential, d/w patient ED course: Well-appearing female initially presenting for mental health exam, however she states that she called 911 for anxiety and chest pain. She adamantly denies wanting to harm herself or harm anyone else. She is alert, oriented, shows no signs of psychosis or intoxication. She does state that she has been under significant stress recently with her divorce, but she states that she has a plan to call her therapist tomorrow. I offered to have patient evaluated by telepsychiatry mary, however she declined stating that she would prefer to follow-up with a therapist. Labs and imaging negative for acute findings. EKG normal sinus rhythm. Very low suspicion for ACS. Short course of as needed anxiety medications sent to pharmacy of choice. Patient again counseled to follow-up with a therapist for her anxiety and stress. Departure - Departure Disposition: 01 Home, Self Care Clinical Impression: Burning chest pain, Anxiety Condition: Stable Instructions: ED Stress React, ED Chest Pain NonCardiac Prescriptions: hydrOXYzine PAMOATE [Vistaril] 25 mg PO TID PRN #30 cap PRN Reason: Anxiety Comments: Your labs today look reassuring. Your heart is working well today. I have sent a medication that you may take for anxiety to the [facility] in [place]. I highly recommend following up with a therapist for your anxiety and stress. Forms: PCP List
[2023-08-22 01:47] LABS: BILIRUBIN,URINE NEGATIVE (NEGATIVE); GLUCOSE, URINE (UA) NEGATIVE (NEGATIVE); KETONES,URINE (UA) NEGATIVE (NEGATIVE); LEUKOCYTE ESTERASE, URINE NEGATIVE (NEGATIVE); NITRITE,URINE NEGATIVE (NEGATIVE); OCCULT BLOOD,URINE SMALL (NEGATIVE); PH,URINE 6.5 PH (5.0-7.5); PROTEIN,URINE NEGATIVE (NEGATIVE); UROBILINOGEN,URINE 0.2 (NORMAL) E.U./dL (NORMAL)
[2023-08-22 01:54] LABS: BASOPHILS % (AUTO) 0.5 %; EOSINOPHILS # (AUTO) 0.1 10^3/uL (0.0-0.7); EOSINOPHILS % (AUTO) 0.9 %; HCT - HEMATOCRIT 41.4 % (37.0-47.0); HGB - HEMOGLOBIN 13.7 g/dL (12.0-16.0); LYMPHOCYTES % (AUTO) 23.8 %; MEAN CORPUSCULAR HEMOGLOBIN 32.7 pg (27.0-31.0); MEAN CORPUSCULAR HGB CONC 33.1 g/dL (32.0-36.0); MEAN CORPUSCULAR VOLUME 98.8 fL (81.0-99.0); MEAN PLATELET VOLUME 10.3 fL (7.9-10.8); MONOCYTES # (AUTO) 0.6 10^3/uL (0.0-1.0); MONOCYTES % (AUTO) 6.5 %; NEUTROPHILS # (AUTO) 5.8 10^3/uL (1.5-6.6); NEUTROPHILS % (AUTO) 68.1 %; PLT - PLATELET COUNT 247 10^3/uL (130-450); RED BLOOD COUNT 4.19 10^6/uL (4.20-5.40); RED CELL DISTRIBUTION WIDTH 13.2 % (12.0-15.0); WHITE BLOOD COUNT 8.5 x10^3/uL (4.8-10.8)
[2023-08-22 01:55] LABS: CLARITY,URINE CLEAR (CLEAR); HCG UR QUAL NEGATIVE
[2023-08-22 02:00] LABS: BACTERIA,URINE Rare /HPF (None Seen); RBC,URINE 0-5 /HPF (0-5); SQUAMOUS EPITHELIAL CELL,UR RARE Squamous (<= Few); WBC,URINE 0-3 /HPF (0-5)
[2023-08-22 02:01] LABS: AMPHETAMINE SCREEN,URINE NEGATIVE (NEGATIVE); BARBITURATE SCREEN,UR NEGATIVE (NEGATIVE); BENZODIAZEPINES SCREEN, URINE NEGATIVE (NEGATIVE); BUPRENORPHINE SCREEN, URINE NEGATIVE (NEGATIVE); COCAINE SCREEN URINE NEGATIVE (NEGATIVE); METHADONE SCREEN, URINE NEGATIVE (NEGATIVE); METHAMPHETAMINES SCREEN, URINE NEGATIVE (NEGATIVE); OPIATE SCREEN, URINE NEGATIVE (NEGATIVE); OXYCODONE SCREEN, URINE NEGATIVE (NEGATIVE); THC CANNABINOID SCREEN, URINE POSITIVE (NEGATIVE); TRICYCLIC ANTIDEPRESSANT,URINE NEGATIVE (NEGATIVE)
--- NOTE | 2023-08-22 02:09 | XRAY Report ---
PROCEDURE: Chest 1V INDICATIONS: chest pain TECHNIQUE: One view of the chest was acquired. COMPARISON: None FINDINGS: Surgical changes and devices: None. Lungs and pleura: No pleural effusions or pneumothorax. Lungs are clear. Mediastinum: Mediastinal contours appear normal. Heart size is normal. Bones and chest wall: No suspicious bony lesions. Overlying soft tissues appear unremarkable. IMPRESSION: No acute cardiopulmonary findings Reviewed by: Jelani Norris MD on 08/22/2023 1:08 AM CASIE Approved by: Jelani Norris MD on 08/22/2023 1:08 AM AKJUSTIN Station ID: [id number]
[2023-08-22 02:13] LABS: TROPONIN I HIGH SENSITIVITY < 2.3 ng/L (2.3-14.8)
[2023-08-22 02:18] LABS: ALBUMIN 4.5 g/dL (3.2-5.5); ALKALINE PHOSPHATASE 62 IU/L (42-121); ALT ALANINE AMINOTRANSFERASE 6 IU/L (10-60); AST ASPARTATE AMINOTRANSFERASE 11 IU/L (10-42); BILIRUBIN,TOTAL 0.4 mg/dL (0.2-1.0); BUN - BLOOD UREA NITROGEN 6 mg/dL (6-20); CALCIUM 9.6 mg/dL (8.5-10.3); CARBON DIOXIDE - CO2 25 mmol/L (21-32); CHLORIDE 103 mmol/L (101-111); CREATININE 0.7 mg/dL (0.6-1.3); ETOH - ETHANOL < 10.0 mg/dL; GFR - MDRD 95 (>89); GLUCOSE 106 mg/dL (74-104); POTASSIUM 3.4 mmol/L (3.5-4.5); SODIUM 136 mmol/L (135-145); TOTAL PROTEIN 6.8 g/dL (6.4-8.9)
[2023-08-22 02:21] LABS: THYROID STIMULATING HORMONE 1.06 uIU/mL (0.34-5.60)
[2023-08-22 02:36] VITALS: BP 130/89; O2SAT 98
== END 2023-08-22 02:52 | disposition home or self-care (01) ==
LOC: EDUNIT# → ED 01:12
DX: R07.89 Other chest pain (principal); F41.9 Anxiety disorder, unspecified; F17.210 Nicotine dependence, cigarettes, uncomplicated
CPT/HCPCS: 36415; 80053; 80143; 80179; 80306; 81001; 81003; 81025; 82077; 84443; 84484; 85025; 87086; 93005; 99284

== ENCOUNTER 2024-01-09 20:36 | Outpatient (CLI) | payer OTHER | END 2024-01-09 23:59 | disposition EMS.NT | LOC: EMS 20:36 | DX: R06.02 Shortness of breath (principal); R46.2 Strange and inexplicable behavior ==